=== PATIENT | female | born 1955 | race African-American/Black ===

== ENCOUNTER → 2017-10-01 | Outpatient (CLI) | payer OTHER ==
[~2017-10-01] MED LIST: METOPROLOL
== END | disposition home or self-care (01) ==
LOC: XYW 10:33
PROVIDERS: ATTEND Internal Medicine Cardiovascular Disease
DX: I25.10 Atherosclerotic heart disease of native coronary artery without angina pectoris (principal); I50.9 Heart failure, unspecified
CPT/HCPCS: 93306

== ENCOUNTER → 2018-04-09 | Outpatient (CLI) | payer OTHER ==
[2018-04-09 13:29] LABS: Basophils # (auto) 0 uL; Basophils % (auto) 0.6 % (0.0-2.0); Eosinophils # (auto) 0.1 uL; Eosinophils % (auto) 1.2 % (0.0-7.0); Hemoglobin 13.8 g/dL (12.2-16.2); Lymphocytes # (auto) 1.6 uL; Lymphocytes % (auto) 27.7 % (10.0-50.0); Mean Corpuscular Hemoglobin 27.6 pg (28.0-32.0); Mean Corpuscular Hgb Conc. 32.7 g/dL (32.0-36.0); Mean Corpuscular Volume 84.4 fL (80.0-100.0); Monocytes # (auto) 0.4 uL; Monocytes % (auto) 6.8 % (0.0-12.0); Neutrophils # (auto) 3.7 uL; Neutrophils % (auto) 63.7 % (37.0-80.0); Platelet Count (auto) 268 10^3/uL (140-450); Red Blood Cells 4.98 10^6/uL (4.0-5.20); Red Cell Distribution Width 13.9 % (11.8-14.3); White Blood Cell 5.8 10^3/uL (4.4-10.8)
[2018-04-09 14:29] LABS: Urine Bacteria NONE SEEN /hpf (None Seen); Urine Blood Negative /uL (Negative); Urine Mucus FEW (None Seen); Urine Specific Gravity 1.024 (1.001-1.035); Urine WBC 1 /hpf (0 - 5)
[2018-04-09 15:17] LABS: BUN/Creatinine Ratio 17.3; Bilirubin, Total 0.3 mg/dL (0.2-1.0); Calcium 9.2 mg/dL (8.5-10.1); Potassium 3.6 mmol/L (3.5-5.1); Total Protein 7.9 g/dL (6.4-8.2)
== END | disposition home or self-care (01) ==
LOC: LAB 12:59
PROVIDERS: ATTEND Internal Medicine
DX: I10 Essential (primary) hypertension (principal); I25.10 Atherosclerotic heart disease of native coronary artery without angina pectoris; K21.9 Gastro-esophageal reflux disease without esophagitis
CPT/HCPCS: 36415; 80053; 81001; 82043; 84439; 84443; 85025; 85652

== ENCOUNTER → 2018-07-09 | Outpatient (CLI) | payer OTHER | END | disposition home or self-care (01) | LOC: LAB 10:29 | DX: E03.9 Hypothyroidism, unspecified (principal); C73 Malignant neoplasm of thyroid gland; I11.0 Hypertensive heart disease with heart failure; I50.9 Heart failure, unspecified; K21.9 Gastro-esophageal reflux disease without esophagitis | CPT/HCPCS: 36415; 84439; 84443; 86800 ==

== ENCOUNTER 2018-11-12 18:14 | Emergency (ER) | payer OTHER ==
[~2018-11-12] VITALS: Ht 165.1 cm; Wt 81.6 kg
[2018-11-12] MEDS ORDERED: cloNIDine HCL 0.1 MG TAB ONE (18:32)
[2018-11-12] MEDS ORDERED: cloNIDine HCL 0.1 MG TAB PO ONE (18:45)
[2018-11-12 22:23] LABS: Basophils # (auto) 0 uL; Eosinophils # (auto) 0.1 uL; Eosinophils % (auto) 0.8 % (0.0-7.0); Hemoglobin 13.4 g/dL (12.2-16.2); Monocytes # (auto) 0.6 uL; Platelet Count (auto) 271 10^3/uL (140-450)
[2018-11-12 22:27] LABS: Basophils % (auto) 0.6 % (0.0-2.0); Hematocrit 41.5 % (36.0-46.0); Lymphocytes # (auto) 2.5 uL; Lymphocytes % (auto) 31.4 % (10.0-50.0); Mean Corpuscular Hemoglobin 27.2 pg (28.0-32.0); Mean Corpuscular Hgb Conc. 32.3 g/dL (32.0-36.0); Mean Corpuscular Volume 84.3 fL (80.0-100.0); Monocytes % (auto) 7.5 % (0.0-12.0); Neutrophils # (auto) 4.8 uL; Neutrophils % (auto) 59.7 % (37.0-80.0); Red Blood Cells 4.92 10^6/uL (4.0-5.20); Red Cell Distribution Width 13.8 % (11.8-14.3); White Blood Cell 8.1 10^3/uL (4.4-10.8)
[2018-11-12 22:37] LABS: Magnesium 2.6 mg/dL (1.6-2.6)
[2018-11-12 22:40] LABS: INR 0.98 (0.9-1.15); Partial Thromboplastin Time 29.7 sec (23.78-33.04); Prothrombin Time 10.5 sec (9.27-12.13)
[2018-11-12 22:42] LABS: BUN/Creatinine Ratio 29.5; Bilirubin, Total 0.2 mg/dL (0.2-1.0); Total Protein 7.7 g/dL (6.4-8.2)
[2018-11-13 08:23] VITALS: BP 178/74
[2018-11-13] MEDS ORDERED: cloNIDine HCL 0.1 MG TAB PO ONE (08:45)
== END 2018-11-13 08:49 | disposition home or self-care (01) ==
LOC: ER 18:16
DX: R07.89 Other chest pain (principal); I11.0 Hypertensive heart disease with heart failure; I50.9 Heart failure, unspecified; K21.9 Gastro-esophageal reflux disease without esophagitis; Z98.61 Coronary angioplasty status
CPT/HCPCS: 36415; 71046; 80053; 83735; 84484; 85025; 85610; 85730; 93005

== ENCOUNTER → 2018-12-29 | Outpatient (CLI) | payer OTHER | END | disposition home or self-care (01) | LOC: US 09:49 | PROVIDERS: ATTEND Internal Medicine | DX: E04.1 Nontoxic single thyroid nodule (principal); I10 Essential (primary) hypertension; I50.9 Heart failure, unspecified; Z95.5 Presence of coronary angioplasty implant and graft; Z98.890 Other specified postprocedural states | CPT/HCPCS: 10005; 10022; 76536; 76942; 88172 ==

== ENCOUNTER → 2019-01-18 | Outpatient (CLI) | payer OTHER ==
[2019-01-18 12:41] LABS: Cholesterol 172 mg/dL (< 200); Triglycerides 62 mg/dL (< 150)
[2019-01-18 12:44] LABS: HDL Cholesterol 59 mg/dL (40-59); LDL Cholesterol 100 mg/dL (< 100)
[2019-01-18 12:53] LABS: Free T3 3.67 pg/mL (2.3-4.2); Free T4 (Free Thyroxine) 1.19 ng/dL (0.89-1.76)
== END | disposition home or self-care (01) ==
LOC: LAB 11:06
PROVIDERS: ATTEND Internal Medicine
DX: E78.5 Hyperlipidemia, unspecified (principal); E03.9 Hypothyroidism, unspecified
CPT/HCPCS: 36415; 80061; 84439; 84443; 84481

== ENCOUNTER → 2019-02-11 | Outpatient (CLI) | payer OTHER | END | disposition home or self-care (01) | LOC: XYW 09:55 | PROVIDERS: ATTEND Internal Medicine | DX: I25.10 Atherosclerotic heart disease of native coronary artery without angina pectoris (principal); I11.0 Hypertensive heart disease with heart failure; I50.9 Heart failure, unspecified | CPT/HCPCS: 93306 ==

== ENCOUNTER → 2019-02-11 | Outpatient (CLI) | payer OTHER ==
[2019-02-11 13:16] LABS: Cholesterol 238 mg/dL (< 200); HDL Cholesterol 60 mg/dL (40-59); LDL Cholesterol 166 mg/dL (< 100); Triglycerides 63 mg/dL (< 150)
== END | disposition home or self-care (01) ==
LOC: LAB 11:02
PROVIDERS: ATTEND Internal Medicine
DX: E78.5 Hyperlipidemia, unspecified (principal)
CPT/HCPCS: 36415; 80061

== ENCOUNTER → 2019-02-25 | Outpatient (CLI) | payer OTHER ==
[~2019-02-25] VITALS: Ht 165.1 cm; Wt 96.2 kg
[~2019-02-25] MED LIST changes: +ADENOSINE 81 MG in GIVE UN-DILUTED 0 ML IV STA
== END | disposition home or self-care (01) ==
LOC: XY 07:53
PROVIDERS: ATTEND Internal Medicine
DX: I25.10 Atherosclerotic heart disease of native coronary artery without angina pectoris (principal)
CPT/HCPCS: 78452; 93017; A9500; J0153

== ENCOUNTER 2019-09-30 16:12 | Emergency (ER) | payer OTHER ==
[~2019-09-30] VITALS: Ht 165.1 cm; Wt 81.6 kg
[~2019-09-30 16:12] MED LIST changes: -ADENOSINE 81 MG in GIVE UN-DILUTED 0 ML IV STA
[2019-09-30 17:08] LABS: Basophils # (auto) 0 uL; Basophils % (auto) 0.4 % (0.0-2.0); Eosinophils # (auto) 0 uL; Eosinophils % (auto) 0.7 % (0.0-7.0); Hematocrit 41.2 % (36.0-46.0); Hemoglobin 13.5 g/dL (12.2-16.2); Lymphocytes # (auto) 2.3 uL; Lymphocytes % (auto) 35.5 % (10.0-50.0); Mean Corpuscular Hemoglobin 27.4 pg (28.0-32.0); Mean Corpuscular Hgb Conc. 32.8 g/dL (32.0-36.0); Mean Corpuscular Volume 83.5 fL (80.0-100.0); Monocytes # (auto) 0.4 uL; Monocytes % (auto) 6.2 % (0.0-12.0); Neutrophils # (auto) 3.8 uL; Neutrophils % (auto) 57.2 % (37.0-80.0); Nucleated Red Blood Cells % 0.1 %; Platelet Count (auto) 255 10^3/uL (140-450); Red Blood Cells 4.93 10^6/uL (4.0-5.20); Red Cell Distribution Width 14.1 % (11.8-14.3); White Blood Cell 6.6 10^3/uL (4.4-10.8)
[2019-09-30 17:18] LABS: Albumin 4.1 g/dL (3.4-5.0); Anion Gap 7 (5-15); Blood Urea Nitrogen 13 mg/dL (7-18); Calcium 9.4 mg/dL (8.5-10.1); Carbon Dioxide 28 mmol/L (21-32); Chloride 110 mmol/L (98-107); Glucose 124 mg/dL (74-106); Potassium 3.5 mmol/L (3.5-5.1); Sodium 145 mmol/L (136-145)
[2019-09-30 17:24] LABS: Alanine Aminotransferase 24 U/L (13-56); Alkaline Phosphatase 110 U/L (45-117); Aspartate Aminotransferase 18 U/L (15-37); BUN/Creatinine Ratio 15.3; Bilirubin, Total 0.4 mg/dL (0.2-1.0); GFR African American 86 mL/min; GFR Non-African American 71 mL/min; Total Protein 7.6 g/dL (6.4-8.2)
[2019-09-30 18:10] LABS: INR 1.05 (0.9-1.15); Partial Thromboplastin Time 28.2 sec (23.64-32.05)
[2019-10-01 00:24] VITALS: BP 156/69
== END 2019-10-01 00:24 | disposition home or self-care (01) ==
LOC: ER 16:12
DX: R07.89 Other chest pain (principal); I11.0 Hypertensive heart disease with heart failure; I50.9 Heart failure, unspecified; K21.9 Gastro-esophageal reflux disease without esophagitis; Z98.61 Coronary angioplasty status
CPT/HCPCS: 36415; 71046; 80053; 83735; 83880; 84484; 85025; 85379; 85610; 85730; 93005

== ENCOUNTER 2020-02-11 02:07 | Emergency (ER) | payer OTHER ==
[~2020-02-11] VITALS: Ht 160 cm; Wt 83.9 kg
[2020-02-11 04:12] LABS: Basophils # (auto) 0 10 ^3/uL (0-0.2); Basophils % (auto) 0.5 % (0.0-2.0); Eosinophils # (auto) 0 10 ^3/uL (0-0.8); Eosinophils % (auto) 0.8 % (0.0-7.0); Hematocrit 38.7 % (36.0-46.0); Hemoglobin 12.5 g/dL (12.2-16.2); Lymphocytes # (auto) 1.6 10 ^3/uL (0.4-5.4); Lymphocytes % (auto) 25.6 % (10.0-50.0); Mean Corpuscular Hemoglobin 27.1 pg (28.0-32.0); Mean Corpuscular Hgb Conc. 32.4 g/dL (32.0-36.0); Mean Corpuscular Volume 83.8 fL (80.0-100.0); Monocytes # (auto) 0.5 10 ^3/uL (0-1.3); Neutrophils % (auto) 65.1 % (37.0-80.0); Nucleated Red Blood Cells % 0.1 %; Platelet Count (auto) 215 10^3/uL (140-450); Red Blood Cells 4.62 10^6/uL (4.0-5.20); White Blood Cell 6.1 10^3/uL (4.4-10.8)
[2020-02-11 04:35] LABS: Potassium 3.3 mmol/L (3.5-5.1)
[2020-02-11 04:48] LABS: Albumin 3.8 g/dL (3.4-5.0); BUN/Creatinine Ratio 20.9; Bilirubin, Total 0.4 mg/dL (0.2-1.0); Calcium 9.1 mg/dL (8.5-10.1); Magnesium 2.3 mg/dL (1.6-2.6); Total Protein 7.2 g/dL (6.4-8.2)
[2020-02-11 04:56] LABS: INR 1.05 (0.9-1.15); Partial Thromboplastin Time 28.5 sec (23.64-32.05)
[2020-02-11] MEDS ORDERED: ASPirin 81 mg TAB PO ONE (07:00)
[2020-02-11] MEDS ORDERED: LORazepam 0.5 MG TAB PO ONE (07:00)
[2020-02-11] MEDS ORDERED: POTASSIUM EFFERVESENT TAB 25 MEQ PO ONE (07:00)
[2020-02-11] MEDS ORDERED: cloNIDine HCL 0.1 MG TAB PO ONE (07:30)
[2020-02-11] MEDS ORDERED: NITROGLYCERIN 0.4 MG SL TAB SL ONE (07:45)
[2020-02-11 09:21] VITALS: BP 134/73
== END 2020-02-11 09:42 | disposition home or self-care (01) ==
LOC: EDBD 02:07 → ER 02:11
DX: M79.10 Myalgia, unspecified site (principal); R00.2 Palpitations; F41.9 Anxiety disorder, unspecified; I11.0 Hypertensive heart disease with heart failure; I50.9 Heart failure, unspecified; I25.10 Atherosclerotic heart disease of native coronary artery without angina pectoris; K21.9 Gastro-esophageal reflux disease without esophagitis; Z79.899 Other long term (current) drug therapy
CPT/HCPCS: 36415; 71045; 80053; 83735; 83880; 84484; 85025; 85610; 85730; 93005

== ENCOUNTER → 2020-04-12 | Outpatient (CLI) | payer OTHER ==
[2020-04-12 14:11] LABS: Magnesium 2.3 mg/dL (1.6-2.6); Potassium 3.8 mmol/L (3.5-5.1)
== END | disposition home or self-care (01) ==
LOC: LAB 13:22
PROVIDERS: ATTEND Internal Medicine
DX: R76.11 Nonspecific reaction to tuberculin skin test without active tuberculosis (principal); R05 Cough; K21.9 Gastro-esophageal reflux disease without esophagitis; Z79.899 Other long term (current) drug therapy
CPT/HCPCS: 36415; 80061; 83735; 84132

== ENCOUNTER → 2020-04-25 | Outpatient (CLI) | payer OTHER ==
[2020-04-25 15:30] LABS: Basophils # (auto) 0.1 10 ^3/uL (0-0.2); Eosinophils # (auto) 0 10 ^3/uL (0-0.8); Lymphocytes # (auto) 2.5 10 ^3/uL (0.4-5.4); Neutrophils # (auto) 4.8 10 ^3/uL (1.6-8.6); Nucleated Red Blood Cells % 0.1 %
[2020-04-25 15:31] LABS: Basophils % (auto) 0.8 % (0.0-2.0); Eosinophils % (auto) 0.6 % (0.0-7.0); Hematocrit 40.9 % (36.0-46.0); Hemoglobin 13.1 g/dL (12.2-16.2); Lymphocytes % (auto) 31.5 % (10.0-50.0); Mean Corpuscular Hemoglobin 26.9 pg (28.0-32.0); Mean Corpuscular Hgb Conc. 31.9 g/dL (32.0-36.0); Mean Corpuscular Volume 84.2 fL (80.0-100.0); Monocytes # (auto) 0.6 10 ^3/uL (0-1.3); Neutrophils % (auto) 60.1 % (37.0-80.0); Platelet Count (auto) 256 10^3/uL (140-450); Red Blood Cells 4.86 10^6/uL (4.0-5.20); Red Cell Distribution Width 13.7 % (11.8-14.3)
[2020-04-25 15:50] LABS: BUN/Creatinine Ratio 14.5
[2020-04-25 15:55] LABS: Bilirubin, Total 0.6 mg/dL (0.2-1.0); Total Protein 7.7 g/dL (6.4-8.2)
== END | disposition home or self-care (01) ==
LOC: LAB 15:14
PROVIDERS: ATTEND Internal Medicine
DX: I25.10 Atherosclerotic heart disease of native coronary artery without angina pectoris (principal); R07.89 Other chest pain; R06.01 Orthopnea
CPT/HCPCS: 36415; 80053; 83880; 84484; 85025; 85379; 85652

== ENCOUNTER → 2020-05-17 | Outpatient (CLI) | payer OTHER | END | disposition home or self-care (01) | LOC: LAB 13:40 | PROVIDERS: ATTEND Internal Medicine | DX: R60.0 Localized edema (principal); R89.9 Unspecified abnormal finding in specimens from other organs, systems and tissues | CPT/HCPCS: 36415; 82565; 84520 ==

== ENCOUNTER → 2020-06-23 | Outpatient (CLI) | payer OTHER ==
[~2020-06-23] MED LIST changes: +ALBUTEROL SULF 2.5 MG/0.5ML(0.5%) NEB SOLN ONE
== END | disposition home or self-care (01) ==
LOC: RT 08:29
PROVIDERS: ATTEND Internal Medicine Pulmonary Disease
DX: R06.02 Shortness of breath (principal)
CPT/HCPCS: 94060; 94727; 94729

== ENCOUNTER → 2020-08-17 | Outpatient (CLI) | payer OTHER ==
[~2020-08-17] MED LIST changes: -ALBUTEROL SULF 2.5 MG/0.5ML(0.5%) NEB SOLN ONE
== END | disposition home or self-care (01) ==
LOC: Rad HDHVI 12:43
PROVIDERS: ATTEND Internal Medicine Cardiovascular Disease
DX: I08.1 Rheumatic disorders of both mitral and tricuspid valves (principal); J45.991 Cough variant asthma; E78.5 Hyperlipidemia, unspecified; Z95.5 Presence of coronary angioplasty implant and graft
CPT/HCPCS: 93306

== ENCOUNTER → 2020-08-21 | Outpatient (CLI) | payer OTHER ==
[~2020-08-21] VITALS: Ht 167.6 cm; Wt 89.8 kg
[~2020-08-21] MED LIST changes: +ADENOSINE 75 MG in GIVE UN-DILUTED 0 ML IV ONE; +ADENOSINE 90 MG/30 ML INJ IV ONE
== END | disposition home or self-care (01) ==
LOC: Rad HDHVI 14:01
PROVIDERS: ATTEND Internal Medicine Cardiovascular Disease
DX: R07.89 Other chest pain (principal); I10 Essential (primary) hypertension; E78.5 Hyperlipidemia, unspecified; I25.10 Atherosclerotic heart disease of native coronary artery without angina pectoris
CPT/HCPCS: 78452; 93005; 96374; 96375; A9500; J0153

== ENCOUNTER → 2021-01-18 | Outpatient (CLI) | payer OTHER ==
[~2021-01-18] MED LIST changes: -ADENOSINE 75 MG in GIVE UN-DILUTED 0 ML IV ONE; -ADENOSINE 90 MG/30 ML INJ IV ONE
[2021-01-18 15:09] LABS: Basophils # (auto) 0 10 ^3/uL (0-0.2); Basophils % (auto) 0.5 % (0.0-2.0); Eosinophils # (auto) 0.1 10 ^3/uL (0-0.8); Eosinophils % (auto) 0.9 % (0.0-7.0); Hematocrit 39.7 % (36.0-46.0); Hemoglobin 13.1 g/dL (12.2-16.2); Lymphocytes # (auto) 2.8 10 ^3/uL (0.4-5.4); Lymphocytes % (auto) 37.9 % (10.0-50.0); Mean Corpuscular Hemoglobin 27.9 pg (28.0-32.0); Mean Corpuscular Hgb Conc. 33.1 g/dL (32.0-36.0); Mean Corpuscular Volume 84.3 fL (80.0-100.0); Monocytes # (auto) 0.5 10 ^3/uL (0-1.3); Monocytes % (auto) 6.9 % (0.0-12.0); Neutrophils # (auto) 3.9 10 ^3/uL (1.6-8.6); Neutrophils % (auto) 53.8 % (37.0-80.0); Nucleated Red Blood Cells % 0.1 %; Platelet Count (auto) 261 10^3/uL (140-450); Red Blood Cells 4.71 10^6/uL (4.0-5.20); Red Cell Distribution Width 13.5 % (11.8-14.3); White Blood Cell 7.3 10^3/uL (4.4-10.8)
[2021-01-18 15:38] LABS: Albumin 4.1 g/dL (3.4-5.0); Calcium 9.5 mg/dL (8.5-10.1); Magnesium 2.5 mg/dL (1.6-2.6); Potassium 3.7 mmol/L (3.5-5.1)
[2021-01-18 15:43] LABS: Bilirubin, Total 0.5 mg/dL (0.2-1.0); Total Protein 7.9 g/dL (6.4-8.2)
== END | disposition home or self-care (01) ==
LOC: LAB 14:48
PROVIDERS: ATTEND Internal Medicine
DX: I10 Essential (primary) hypertension (principal); E78.5 Hyperlipidemia, unspecified
CPT/HCPCS: 36415; 80053; 83735; 84439; 84443; 85025

== ENCOUNTER → 2021-06-21 | Outpatient (CLI) | payer OTHER | END | disposition home or self-care (01) | LOC: XY 08:19 | PROVIDERS: ATTEND Internal Medicine | DX: E04.1 Nontoxic single thyroid nodule (principal); E03.9 Hypothyroidism, unspecified; E05.90 Thyrotoxicosis, unspecified without thyrotoxic crisis or storm; E04.8 Other specified nontoxic goiter | CPT/HCPCS: 78014; A9516 ==

== ENCOUNTER → 2021-08-03 | Outpatient (CLI) | payer OTHER ==
[2021-08-03 09:29] LABS: Basophils # (auto) 0 10 ^3/uL (0-0.2); Basophils % (auto) 0.4 % (0.0-2.0); Eosinophils # (auto) 0.1 10 ^3/uL (0-0.8); Eosinophils % (auto) 0.9 % (0.0-7.0); Hematocrit 42.4 % (36.0-46.0); Hemoglobin 13.6 g/dL (12.2-16.2); Lymphocytes # (auto) 1.6 10 ^3/uL (0.4-5.4); Lymphocytes % (auto) 29.5 % (10.0-50.0); Mean Corpuscular Volume 84.4 fL (80.0-100.0); Monocytes # (auto) 0.4 10 ^3/uL (0-1.3); Monocytes % (auto) 7.4 % (0.0-12.0); Neutrophils # (auto) 3.4 10 ^3/uL (1.6-8.6); Neutrophils % (auto) 61.8 % (37.0-80.0); Red Blood Cells 5.02 10^6/uL (4.0-5.20); Red Cell Distribution Width 14.3 % (11.8-14.3); White Blood Cell 5.6 10^3/uL (4.4-10.8)
[2021-08-03 09:37] LABS: Urine Bacteria NONE SEEN /hpf (None Seen); Urine Blood Negative /uL (Negative); Urine Mucus FEW (None Seen); Urine Specific Gravity 1.023 (1.001-1.035); Urine WBC 11 /hpf (0 - 5)
[2021-08-03 09:58] LABS: Calcium 9.5 mg/dL (8.5-10.1); Potassium 3.8 mmol/L (3.5-5.1)
[2021-08-03 10:03] LABS: Bilirubin, Total 0.6 mg/dL (0.2-1.0); Total Protein 7.7 g/dL (6.4-8.2)
== END | disposition home or self-care (01) ==
LOC: LAB 09:12
PROVIDERS: ATTEND Internal Medicine
DX: E04.2 Nontoxic multinodular goiter (principal)
CPT/HCPCS: 36415; 80053; 80061; 81001; 84439; 84443; 85025; 85652

== ENCOUNTER 2021-09-30 12:57 | Emergency (ER) | payer OTHER ==
[~2021-09-30] VITALS: Ht 167.6 cm; Wt 85.7 kg
[2021-09-30 12:59] VITALS: BP 155/76
== END 2021-09-30 20:58 | disposition left against medical advice (07) ==
LOC: ER 12:57
DX: R07.89 Other chest pain (principal); Z53.21 Procedure and treatment not carried out due to patient leaving prior to being seen by health care provider
CPT/HCPCS: 93005

== ENCOUNTER 2021-10-01 17:13 | Inpatient (IN) | payer OTHER ==
[~2021-10-01] VITALS: Ht 167.6 cm; Wt 103.2 kg
[~2021-10-01 17:13] MED LIST changes: -BUDE1AER5 PO; -CLOP75TA70 PO; -ESCI5TAB33 PO; -FURO40TA4 PO; -LOSA-39 PO; -NIFE90TA49 PO; -POTA-264 PO; -SIMV-13 PO
[2021-10-01] MEDS ORDERED: MORPHINE SULFATE INJECTION 2 MG/ML SYRG IV ONE (17:45)
[2021-10-01] MEDS ORDERED: ONDANSETRON HCL 4 MG/2 ML VIAL IV ONE (17:45)
[2021-10-01 18:10] LABS: Basophils # (auto) 0 10 ^3/uL (0-0.2); Basophils % (auto) 0.3 % (0.0-2.0); Eosinophils # (auto) 0 10 ^3/uL (0-0.8); Neutrophils # (auto) 6.5 10 ^3/uL (1.6-8.6); Nucleated Red Blood Cells % 0.1 %
[2021-10-01 18:12] LABS: Eosinophils % (auto) 0.2 % (0.0-7.0); Hematocrit 44.1 % (36.0-46.0); Lymphocytes # (auto) 2.2 10 ^3/uL (0.4-5.4); Mean Corpuscular Hemoglobin 26.5 pg (28.0-32.0); Mean Corpuscular Hgb Conc. 31.7 g/dL (32.0-36.0); Mean Corpuscular Volume 83.8 fL (80.0-100.0); Monocytes # (auto) 0.8 10 ^3/uL (0-1.3); Monocytes % (auto) 8.7 % (0.0-12.0); Neutrophils % (auto) 67.8 % (37.0-80.0); Red Blood Cells 5.26 10^6/uL (4.0-5.20); Red Cell Distribution Width 14.3 % (11.8-14.3); White Blood Cell 9.5 10^3/uL (4.4-10.8)
[2021-10-01 18:28] LABS: Calcium 9.5 mg/dL (8.5-10.1); Magnesium 2.7 mg/dL (1.6-2.6); Potassium 3.5 mmol/L (3.5-5.1)
[2021-10-01 18:33] LABS: BUN/Creatinine Ratio 16.7; Bilirubin, Total 0.5 mg/dL (0.2-1.0); Total Protein 8.1 g/dL (6.4-8.2)
[2021-10-01] MEDS ORDERED: IOHEXOL 350 MG/ML 100ML IJ ONE (19:23)
[2021-10-01] MEDS ORDERED: ACETAMINOPHEN 325 MG TAB PO PRN (21:00)
[2021-10-01] MEDS: ATORVASTATIN 20 MG TAB PO SCH (21:46)
[2021-10-02] MEDS ORDERED: BUDE1AER5 PO (01:14)
[2021-10-02] MEDS ORDERED: LOSA-39 PO (01:14)
[2021-10-02] MEDS ORDERED: SIMV-13 PO (01:14)
[2021-10-02] MEDS ORDERED: CLOP75TA70 PO (01:14)
[2021-10-02] MEDS ORDERED: ESCI5TAB33 PO (01:14)
[2021-10-02] MEDS ORDERED: FURO40TA4 PO (01:14)
[2021-10-02] MEDS ORDERED: NIFE90TA49 PO (01:14)
[2021-10-02] MEDS ORDERED: POTA-264 PO (01:15)
[2021-10-02 05:00] VITALS: BP 120/54
[2021-10-02 05:45] VITALS: BP 127/64
[2021-10-02 08:40] LABS: Basophils # (auto) 0 10 ^3/uL (0-0.2); Basophils % (auto) 0.5 % (0.0-2.0); Eosinophils # (auto) 0.1 10 ^3/uL (0-0.8); Eosinophils % (auto) 0.8 % (0.0-7.0); Hematocrit 42.5 % (36.0-46.0); Hemoglobin 13.8 g/dL (12.2-16.2); Lymphocytes % (auto) 27.9 % (10.0-50.0); Mean Corpuscular Hemoglobin 27.2 pg (28.0-32.0); Mean Corpuscular Hgb Conc. 32.6 g/dL (32.0-36.0); Mean Corpuscular Volume 83.5 fL (80.0-100.0); Monocytes # (auto) 0.7 10 ^3/uL (0-1.3); Monocytes % (auto) 9.3 % (0.0-12.0); Neutrophils # (auto) 4.4 10 ^3/uL (1.6-8.6); Neutrophils % (auto) 61.5 % (37.0-80.0); Nucleated Red Blood Cells % 0.1 %; Red Blood Cells 5.08 10^6/uL (4.0-5.20); Red Cell Distribution Width 14.1 % (11.8-14.3); White Blood Cell 7.2 10^3/uL (4.4-10.8)
[2021-10-02 08:56] LABS: Albumin 3.9 g/dL (3.4-5.0); Calcium 9.4 mg/dL (8.5-10.1); Potassium 3.7 mmol/L (3.5-5.1)
[2021-10-02 09:00] VITALS: BP 118/64
[2021-10-02 09:03] LABS: BUN/Creatinine Ratio 21.4; Bilirubin, Total 0.6 mg/dL (0.2-1.0); Total Protein 7.8 g/dL (6.4-8.2)
[2021-10-02] MEDS: ASPirin 81 mg TAB PO SCH (09:39)
[2021-10-02] MEDS: PANTOPRAZOLE 40 MG TAB PO SCH (09:39)
[2021-10-02] MEDS: NIFEdipine ER 30 MG TAB PO SCH (09:40)
[2021-10-02] MEDS: FUROSEMIDE 40 MG TAB PO SCH (09:41)
[2021-10-02] MEDS: CLOPIDOGREL BISULFATE 75 MG TAB PO SCH (09:41)
[2021-10-02] MEDS: LOSARTAN POTASSIUM 50 MG TAB PO SCH (09:41)
[2021-10-02] MEDS ORDERED: ENOXAPARIN SOD 40 MG/0.4 ML SYRINGE SC SCH (10:00)
[2021-10-02] MEDS ORDERED: HYDROcodone-ACET 5/325MG TAB PO ONE (12:15)
[2021-10-02] MEDS ORDERED: ENOXAPARIN SOD 60 MG/0.6 ML SYRINGE SC ONE (12:30)
[2021-10-02 13:00] VITALS: BP_SYST 126; BP_SYST 129; BP_DIAS 57; BP_DIAS 70
[2021-10-02] MEDS ORDERED: KETOROLAC TROMETH 30 MG/ML 1ML VIAL IV ONE (16:30)
[2021-10-02 16:51] VITALS: BP 126/57
[2021-10-02] MEDS: NITROGLYCERIN 0.4 MG SL TAB SL PRN ×2 (21:04→21:26)
[2021-10-02] MEDS: ATORVASTATIN 20 MG TAB PO SCH (21:06)
[2021-10-02] MEDS: ENOXAPARIN SOD 100 MG/1 ML SYRINGE SC SCH (21:07)
[2021-10-02] MEDS: TEMAZEPAM 15 MG CAP PO PRN (22:47)
[2021-10-02 23:17] VITALS: BP 122/66
[2021-10-03 05:12] VITALS: BP 130/80
[2021-10-03 09:00] VITALS: BP 120/67
[2021-10-03] MEDS: CLOPIDOGREL BISULFATE 75 MG TAB PO SCH (09:50)
[2021-10-03] MEDS: LOSARTAN POTASSIUM 50 MG TAB PO SCH (09:50)
[2021-10-03] MEDS: PANTOPRAZOLE 40 MG TAB PO SCH (09:50)
[2021-10-03] MEDS: FUROSEMIDE 40 MG TAB PO SCH (09:50)
[2021-10-03] MEDS: ENOXAPARIN SOD 100 MG/1 ML SYRINGE SC SCH (09:51)
[2021-10-03] MEDS: ASPirin 81 mg TAB PO SCH (09:55)
[2021-10-03] MEDS: NIFEdipine ER 30 MG TAB PO SCH (10:00)
[2021-10-03] MEDS: MORPHINE SULFATE INJECTION 2 MG/ML SYRG IV PRN (10:19)
[2021-10-03 13:00] VITALS: BP 145/78
[2021-10-03] MEDS ORDERED: LIDOCAINE 2%HCL (LOCAL ANESTH.) INJ 20ML MDV ONE ×2 (13:38→15:16)
[2021-10-03] MEDS ORDERED: IOHEXOL 350 MG/ML 100ML IJ ONE (13:38)
[2021-10-03] MEDS ORDERED: fentaNYL CITRATE 100 MCG/2 ML VL ONE (14:26)
[2021-10-03] MEDS ORDERED: ANGIOMAX 250 MG VIAL IV ONE (14:26)
[2021-10-03] MEDS ORDERED: MIDAZOLAM HCL 2MG/2ML 2ml VIAL (1mg/ml) ONE (14:27)
[2021-10-03] MEDS ORDERED: SODIUM CHL 0.9% 50 ML ONE (14:27)
[2021-10-03] MEDS ORDERED: ASPirin 325 MG TAB ONE (15:31)
[2021-10-03] MEDS ORDERED: CLOPIDOGREL 300 MG TAB ONE (15:31)
[2021-10-03] MEDS: ONDANSETRON HCL 4 MG/2 ML VIAL IV PRN ×2 (16:51→21:07)
[2021-10-03 17:00] VITALS: BP 113/67
[2021-10-03 19:30] VITALS: BP 113/59
[2021-10-03] MEDS: ATORVASTATIN 20 MG TAB PO SCH (21:56)
[2021-10-03] MEDS: HYDROcodone-ACET 5/325MG TAB PO PRN (21:57)
[2021-10-03 22:00] VITALS: BP 113/59
[2021-10-04] MEDS: TEMAZEPAM 15 MG CAP PO PRN (01:26)
[2021-10-04] MEDS: ONDANSETRON HCL 4 MG/2 ML VIAL IV PRN (01:45)
[2021-10-04 05:00] VITALS: BP 103/64
[2021-10-04 05:39] LABS: Hematocrit 35.7 % (36.0-46.0); Hemoglobin 11.8 g/dL (12.2-16.2)
[2021-10-04] MEDS: HYDROcodone-ACET 5/325MG TAB PO PRN ×2 (06:48→21:28)
[2021-10-04 07:06] LABS: Albumin 3.5 g/dL (3.4-5.0); Potassium 4.7 mmol/L (3.5-5.1)
[2021-10-04 07:11] LABS: BUN/Creatinine Ratio 24.5; Bilirubin, Total 0.3 mg/dL (0.2-1.0); Total Protein 6.8 g/dL (6.4-8.2)
[2021-10-04 08:47] LABS: INR 1.05 (0.9-1.15); Partial Thromboplastin Time 28.2 sec (23.6-33.0)
[2021-10-04 09:00] VITALS: BP 94/61
[2021-10-04] MEDS: LOSARTAN POTASSIUM 50 MG TAB PO SCH (09:01)
[2021-10-04] MEDS: FUROSEMIDE 40 MG TAB PO SCH (09:02)
[2021-10-04] MEDS: NIFEdipine ER 30 MG TAB PO SCH (09:02)
[2021-10-04] MEDS: PANTOPRAZOLE 40 MG TAB PO SCH (10:00)
[2021-10-04] MEDS ORDERED: ASPirin-EC 81 mg tab PO SCH (10:00)
[2021-10-04] MEDS ORDERED: SODIUM CHLORIDE 0.9% 1,000 ML IV ONE (10:30)
[2021-10-04 11:53] LABS: Basophils # (auto) 0 10 ^3/uL (0-0.2); Basophils % (auto) 0.1 % (0.0-2.0); Eosinophils # (auto) 0 10 ^3/uL (0-0.8); Hematocrit 35.7 % (36.0-46.0); Hemoglobin 11.3 g/dL (12.2-16.2); Lymphocytes # (auto) 1.2 10 ^3/uL (0.4-5.4); Lymphocytes % (auto) 9.4 % (10.0-50.0); Mean Corpuscular Hemoglobin 26.7 pg (28.0-32.0); Mean Corpuscular Hgb Conc. 31.8 g/dL (32.0-36.0); Monocytes # (auto) 0.8 10 ^3/uL (0-1.3); Monocytes % (auto) 5.7 % (0.0-12.0); Neutrophils # (auto) 11.2 10 ^3/uL (1.6-8.6); Neutrophils % (auto) 84.8 % (37.0-80.0); Nucleated Red Blood Cells % 0.1 %; Red Blood Cells 4.25 10^6/uL (4.0-5.20); White Blood Cell 13.2 10^3/uL (4.4-10.8)
[2021-10-04 12:14] LABS: BUN/Creatinine Ratio 19.3; Potassium 4.6 mmol/L (3.5-5.1)
[2021-10-04 13:00] VITALS: BP 118/70
[2021-10-04 13:36] LABS: Basophils # (auto) 0 10 ^3/uL (0-0.2); Eosinophils # (auto) 0 10 ^3/uL (0-0.8); Lymphocytes # (auto) 1.1 10 ^3/uL (0.4-5.4); Monocytes # (auto) 0.9 10 ^3/uL (0-1.3)
[2021-10-04 13:38] LABS: Basophils % (auto) 0.1 % (0.0-2.0); Hematocrit 34.3 % (36.0-46.0); Hemoglobin 10.8 g/dL (12.2-16.2); Lymphocytes % (auto) 8.1 % (10.0-50.0); Mean Corpuscular Hemoglobin 26.6 pg (28.0-32.0); Mean Corpuscular Hgb Conc. 31.5 g/dL (32.0-36.0); Mean Corpuscular Volume 84.4 fL (80.0-100.0); Monocytes % (auto) 6.9 % (0.0-12.0); Neutrophils # (auto) 11.5 10 ^3/uL (1.6-8.6); Neutrophils % (auto) 84.9 % (37.0-80.0); Red Blood Cells 4.06 10^6/uL (4.0-5.20); Red Cell Distribution Width 14.2 % (11.8-14.3); White Blood Cell 13.6 10^3/uL (4.4-10.8)
[2021-10-04 13:53] LABS: BUN/Creatinine Ratio 20.2; Potassium 4.5 mmol/L (3.5-5.1)
[2021-10-04 17:00] VITALS: BP 124/53
[2021-10-04] MEDS: ATORVASTATIN 20 MG TAB PO SCH (21:27)
[2021-10-04 22:00] VITALS: BP 129/56
[2021-10-05 02:52] LABS: Eosinophils # (auto) 0 10 ^3/uL (0-0.8); Hemoglobin 8.7 g/dL (12.2-16.2); Mean Corpuscular Hemoglobin 26.9 pg (28.0-32.0)
[2021-10-05 02:54] LABS: Basophils # (auto) 0 10 ^3/uL (0-0.2); Basophils % (auto) 0.2 % (0.0-2.0); Hematocrit 27.1 % (36.0-46.0); Lymphocytes # (auto) 2.5 10 ^3/uL (0.4-5.4); Lymphocytes % (auto) 19.9 % (10.0-50.0); Mean Corpuscular Hgb Conc. 32.2 g/dL (32.0-36.0); Mean Corpuscular Volume 83.6 fL (80.0-100.0); Monocytes # (auto) 1.6 10 ^3/uL (0-1.3); Monocytes % (auto) 12.6 % (0.0-12.0); Neutrophils # (auto) 8.6 10 ^3/uL (1.6-8.6); Neutrophils % (auto) 67.3 % (37.0-80.0); Nucleated Red Blood Cells % 0.1 %; Red Blood Cells 3.24 10^6/uL (4.0-5.20); Red Cell Distribution Width 14.1 % (11.8-14.3); White Blood Cell 12.8 10^3/uL (4.4-10.8)
[2021-10-05 05:00] VITALS: BP 112/62
[2021-10-05 09:00] VITALS: BP 128/56
[2021-10-05 09:14] LABS: Basophils # (auto) 0 10 ^3/uL (0-0.2); Basophils % (auto) 0.1 % (0.0-2.0); Eosinophils # (auto) 0 10 ^3/uL (0-0.8); Eosinophils % (auto) 0.1 % (0.0-7.0); Hemoglobin 8.8 g/dL (12.2-16.2); Lymphocytes # (auto) 2.5 10 ^3/uL (0.4-5.4); Lymphocytes % (auto) 22.3 % (10.0-50.0); Mean Corpuscular Hemoglobin 27.4 pg (28.0-32.0); Mean Corpuscular Hgb Conc. 32.8 g/dL (32.0-36.0); Mean Corpuscular Volume 83.7 fL (80.0-100.0); Monocytes # (auto) 1.2 10 ^3/uL (0-1.3); Monocytes % (auto) 10.3 % (0.0-12.0); Neutrophils # (auto) 7.6 10 ^3/uL (1.6-8.6); Neutrophils % (auto) 67.2 % (37.0-80.0); Red Blood Cells 3.23 10^6/uL (4.0-5.20); White Blood Cell 11.3 10^3/uL (4.4-10.8)
[2021-10-05 09:25] LABS: Calcium 8.7 mg/dL (8.5-10.1); Magnesium 2.6 mg/dL (1.6-2.6); Potassium 4.1 mmol/L (3.5-5.1)
[2021-10-05 09:26] LABS: BUN/Creatinine Ratio 32.8
[2021-10-05] MEDS: FUROSEMIDE 40 MG TAB PO SCH (10:00)
[2021-10-05] MEDS: NIFEdipine ER 30 MG TAB PO SCH (10:00)
[2021-10-05] MEDS: PANTOPRAZOLE 40 MG TAB PO SCH (10:00)
[2021-10-05] MEDS: LOSARTAN POTASSIUM 50 MG TAB PO SCH (10:00)
[2021-10-05] MEDS: HYDROcodone-ACET 5/325MG TAB PO PRN (12:57)
[2021-10-05 13:00] VITALS: BP 116/60
[2021-10-05 14:13] LABS: Basophils # (auto) 0 10 ^3/uL (0-0.2); Basophils % (auto) 0.2 % (0.0-2.0); Eosinophils # (auto) 0 10 ^3/uL (0-0.8); Hematocrit 25.1 % (36.0-46.0); Hemoglobin 8.2 g/dL (12.2-16.2); Lymphocytes # (auto) 1.9 10 ^3/uL (0.4-5.4); Lymphocytes % (auto) 20.7 % (10.0-50.0); Mean Corpuscular Hemoglobin 27.2 pg (28.0-32.0); Mean Corpuscular Hgb Conc. 32.5 g/dL (32.0-36.0); Mean Corpuscular Volume 83.7 fL (80.0-100.0); Monocytes # (auto) 0.9 10 ^3/uL (0-1.3); Monocytes % (auto) 9.5 % (0.0-12.0); Neutrophils # (auto) 6.4 10 ^3/uL (1.6-8.6); Neutrophils % (auto) 69.6 % (37.0-80.0); Red Blood Cells 3.01 10^6/uL (4.0-5.20); Red Cell Distribution Width 13.8 % (11.8-14.3); White Blood Cell 9.2 10^3/uL (4.4-10.8)
[2021-10-05] MEDS: CLOPIDOGREL BISULFATE 75 MG TAB PO SCH (16:54)
[2021-10-05 17:00] VITALS: BP 118/59
[2021-10-05] MEDS ORDERED: PATIENTS OWN MEDICATION (EPOGEN 10,000 UNITS) SUBCUT ONE (17:00)
[2021-10-05] MEDS ORDERED: EPOETIN ALFA-EPBX 10,000 UNIT/1ML VIAL SC ONE (17:00)
[2021-10-05 18:25] LABS: Basophils # (auto) 0 10 ^3/uL (0-0.2); Basophils % (auto) 0.3 % (0.0-2.0); Eosinophils # (auto) 0 10 ^3/uL (0-0.8); Hemoglobin 8.6 g/dL (12.2-16.2); Lymphocytes # (auto) 2.2 10 ^3/uL (0.4-5.4); Lymphocytes % (auto) 23.9 % (10.0-50.0); Mean Corpuscular Hemoglobin 27.5 pg (28.0-32.0); Mean Corpuscular Hgb Conc. 33.1 g/dL (32.0-36.0); Mean Corpuscular Volume 82.9 fL (80.0-100.0); Monocytes # (auto) 1.1 10 ^3/uL (0-1.3); Monocytes % (auto) 11.9 % (0.0-12.0); Neutrophils # (auto) 5.9 10 ^3/uL (1.6-8.6); Neutrophils % (auto) 63.9 % (37.0-80.0); Red Blood Cells 3.14 10^6/uL (4.0-5.20); Red Cell Distribution Width 13.9 % (11.8-14.3); White Blood Cell 9.3 10^3/uL (4.4-10.8)
[2021-10-05] MEDS: MORPHINE SULFATE INJECTION 2 MG/ML SYRG IV PRN (18:35)
[2021-10-05] MEDS: ONDANSETRON HCL 4 MG/2 ML VIAL IV PRN (18:35)
[2021-10-05] MEDS: NITROGLYCERIN 0.4 MG SL TAB SL PRN (18:43)
[2021-10-05 22:00] VITALS: BP 134/60
[2021-10-05] MEDS: ATORVASTATIN 20 MG TAB PO SCH (22:10)
[2021-10-06 02:20] LABS: Basophils # (auto) 0 10 ^3/uL (0-0.2); Eosinophils # (auto) 0 10 ^3/uL (0-0.8); Lymphocytes % (auto) 26.7 % (10.0-50.0); Mean Corpuscular Volume 82.9 fL (80.0-100.0)
[2021-10-06 02:22] LABS: Basophils % (auto) 0.5 % (0.0-2.0); Eosinophils % (auto) 0.1 % (0.0-7.0); Hematocrit 23.6 % (36.0-46.0); Mean Corpuscular Hgb Conc. 33.8 g/dL (32.0-36.0); Monocytes # (auto) 0.9 10 ^3/uL (0-1.3); Monocytes % (auto) 11.7 % (0.0-12.0); Neutrophils # (auto) 4.6 10 ^3/uL (1.6-8.6); Red Blood Cells 2.85 10^6/uL (4.0-5.20); Red Cell Distribution Width 13.8 % (11.8-14.3); White Blood Cell 7.5 10^3/uL (4.4-10.8)
[2021-10-06 05:00] VITALS: BP 127/61
[2021-10-06 07:08] LABS: Basophils # (auto) 0 10 ^3/uL (0-0.2); Eosinophils # (auto) 0 10 ^3/uL (0-0.8); Eosinophils % (auto) 0.1 % (0.0-7.0); Hemoglobin 7.8 g/dL (12.2-16.2); Mean Corpuscular Hgb Conc. 32.8 g/dL (32.0-36.0); Monocytes # (auto) 0.8 10 ^3/uL (0-1.3); Neutrophils # (auto) 5.2 10 ^3/uL (1.6-8.6)
[2021-10-06 07:10] LABS: Basophils % (auto) 0.5 % (0.0-2.0); Hematocrit 23.9 % (36.0-46.0); Lymphocytes # (auto) 1.5 10 ^3/uL (0.4-5.4); Lymphocytes % (auto) 19.7 % (10.0-50.0); Mean Corpuscular Hemoglobin 27.3 pg (28.0-32.0); Mean Corpuscular Volume 83.4 fL (80.0-100.0); Monocytes % (auto) 10.2 % (0.0-12.0); Neutrophils % (auto) 69.5 % (37.0-80.0); Red Blood Cells 2.86 10^6/uL (4.0-5.20); Red Cell Distribution Width 13.8 % (11.8-14.3); White Blood Cell 7.4 10^3/uL (4.4-10.8)
[2021-10-06 07:17] LABS: Calcium 8.4 mg/dL (8.5-10.1); Magnesium 2.8 mg/dL (1.6-2.6); Phosphorus 2.2 mg/dL (2.5-4.90); Potassium 4.1 mmol/L (3.5-5.1)
[2021-10-06 09:00] VITALS: BP 105/35
[2021-10-06] MEDS: FUROSEMIDE 40 MG TAB PO SCH (10:00)
[2021-10-06] MEDS: PANTOPRAZOLE 40 MG TAB PO SCH (10:03)
[2021-10-06] MEDS: CLOPIDOGREL BISULFATE 75 MG TAB PO SCH (10:03)
[2021-10-06] MEDS: SODIUM FERR GLUC 62.5MG/5ML 125 MG in SODIUM CHL 0.9% 100 ML IV SCH (10:20)
[2021-10-06] MEDS: HYDROcodone-ACET 5/325MG TAB PO PRN (10:37)
[2021-10-06] MEDS ORDERED: POTASSIUM PHOSPHATE 22 MEQ in SODIUM CHL 0.9% 100 ML IV ONE (12:00)
[2021-10-06 12:45] VITALS: BP 98/34
[2021-10-06 14:21] LABS: Basophils # (auto) 0 10 ^3/uL (0-0.2); Eosinophils # (auto) 0 10 ^3/uL (0-0.8); Lymphocytes # (auto) 1.8 10 ^3/uL (0.4-5.4); Mean Corpuscular Hgb Conc. 33.1 g/dL (32.0-36.0); Monocytes # (auto) 0.8 10 ^3/uL (0-1.3)
[2021-10-06 14:23] LABS: Basophils % (auto) 0.1 % (0.0-2.0); Eosinophils % (auto) 0.1 % (0.0-7.0); Hematocrit 23.7 % (36.0-46.0); Hemoglobin 7.8 g/dL (12.2-16.2); Lymphocytes % (auto) 21.9 % (10.0-50.0); Mean Corpuscular Hemoglobin 27.7 pg (28.0-32.0); Mean Corpuscular Volume 83.6 fL (80.0-100.0); Monocytes % (auto) 9.6 % (0.0-12.0); Neutrophils # (auto) 5.8 10 ^3/uL (1.6-8.6); Neutrophils % (auto) 68.3 % (37.0-80.0); Red Blood Cells 2.83 10^6/uL (4.0-5.20); Red Cell Distribution Width 13.6 % (11.8-14.3); White Blood Cell 8.4 10^3/uL (4.4-10.8)
[2021-10-06 16:53] VITALS: BP 118/75
[2021-10-06 19:37] LABS: Basophils # (auto) 0 10 ^3/uL (0-0.2); Eosinophils # (auto) 0 10 ^3/uL (0-0.8); Hemoglobin 7.5 g/dL (12.2-16.2); Mean Corpuscular Hemoglobin 27.7 pg (28.0-32.0); Mean Corpuscular Hgb Conc. 33.4 g/dL (32.0-36.0); Mean Corpuscular Volume 82.9 fL (80.0-100.0); Monocytes # (auto) 0.8 10 ^3/uL (0-1.3); Neutrophils # (auto) 5.5 10 ^3/uL (1.6-8.6); Nucleated Red Blood Cells % 0.1 %; Red Blood Cells 2.71 10^6/uL (4.0-5.20)
[2021-10-06 19:40] LABS: Basophils % (auto) 0.3 % (0.0-2.0); Eosinophils % (auto) 0.1 % (0.0-7.0); Hematocrit 22.5 % (36.0-46.0); Lymphocytes # (auto) 1.6 10 ^3/uL (0.4-5.4); Lymphocytes % (auto) 19.8 % (10.0-50.0); Monocytes % (auto) 10.2 % (0.0-12.0); Neutrophils % (auto) 69.6 % (37.0-80.0); Red Cell Distribution Width 13.6 % (11.8-14.3)
[2021-10-06 22:00] VITALS: BP 120/53
[2021-10-06] MEDS: ATORVASTATIN 20 MG TAB PO SCH (22:03)
[2021-10-06] MEDS: MORPHINE SULFATE INJECTION 2 MG/ML SYRG IV PRN (22:17)
[2021-10-06] MEDS: TEMAZEPAM 15 MG CAP PO PRN (22:18)
[2021-10-07 01:09] LABS: Basophils # (auto) 0 10 ^3/uL (0-0.2); Eosinophils # (auto) 0 10 ^3/uL (0-0.8); Lymphocytes # (auto) 1.9 10 ^3/uL (0.4-5.4); Monocytes # (auto) 0.8 10 ^3/uL (0-1.3); Neutrophils # (auto) 4.5 10 ^3/uL (1.6-8.6)
[2021-10-07 01:12] LABS: Basophils % (auto) 0.5 % (0.0-2.0); Eosinophils % (auto) 0.3 % (0.0-7.0); Hematocrit 21.9 % (36.0-46.0); Hemoglobin 7.4 g/dL (12.2-16.2); Lymphocytes % (auto) 26.4 % (10.0-50.0); Mean Corpuscular Hemoglobin 28.2 pg (28.0-32.0); Mean Corpuscular Hgb Conc. 33.8 g/dL (32.0-36.0); Mean Corpuscular Volume 83.4 fL (80.0-100.0); Monocytes % (auto) 11.2 % (0.0-12.0); Neutrophils % (auto) 61.6 % (37.0-80.0); Red Blood Cells 2.62 10^6/uL (4.0-5.20); Red Cell Distribution Width 13.4 % (11.8-14.3); White Blood Cell 7.2 10^3/uL (4.4-10.8)
[2021-10-07 05:00] VITALS: BP 128/75
[2021-10-07 05:19] LABS: Basophils # (auto) 0 10 ^3/uL (0-0.2); Basophils % (auto) 0.4 % (0.0-2.0); Eosinophils # (auto) 0 10 ^3/uL (0-0.8); Lymphocytes # (auto) 1.7 10 ^3/uL (0.4-5.4); Monocytes # (auto) 0.7 10 ^3/uL (0-1.3); Monocytes % (auto) 10.6 % (0.0-12.0); Neutrophils # (auto) 4.5 10 ^3/uL (1.6-8.6); Nucleated Red Blood Cells % 0.1 %; Red Cell Distribution Width 13.6 % (11.8-14.3)
[2021-10-07 05:21] LABS: Eosinophils % (auto) 0.4 % (0.0-7.0); Hematocrit 22.1 % (36.0-46.0); Hemoglobin 7.3 g/dL (12.2-16.2); Lymphocytes % (auto) 24.8 % (10.0-50.0); Mean Corpuscular Hemoglobin 27.4 pg (28.0-32.0); Mean Corpuscular Hgb Conc. 32.9 g/dL (32.0-36.0); Mean Corpuscular Volume 83.5 fL (80.0-100.0); Neutrophils % (auto) 63.8 % (37.0-80.0); Red Blood Cells 2.64 10^6/uL (4.0-5.20)
[2021-10-07 05:54] LABS: Calcium 8.5 mg/dL (8.5-10.1); Potassium 3.9 mmol/L (3.5-5.1)
[2021-10-07 05:56] LABS: BUN/Creatinine Ratio 17.9
[2021-10-07 09:00] VITALS: BP 126/55
[2021-10-07] MEDS: CLOPIDOGREL BISULFATE 75 MG TAB PO SCH (09:14)
[2021-10-07] MEDS: PANTOPRAZOLE 40 MG TAB PO SCH (09:14)
[2021-10-07] MEDS: FUROSEMIDE 40 MG TAB PO SCH (09:15)
[2021-10-07] MEDS: SODIUM FERR GLUC 62.5MG/5ML 125 MG in SODIUM CHL 0.9% 100 ML IV SCH (11:49)
[2021-10-07 12:23] LABS: Basophils # (auto) 0 10 ^3/uL (0-0.2); Basophils % (auto) 0.3 % (0.0-2.0); Eosinophils # (auto) 0 10 ^3/uL (0-0.8); Eosinophils % (auto) 0.2 % (0.0-7.0); Hematocrit 24.9 % (36.0-46.0); Hemoglobin 8.1 g/dL (12.2-16.2); Lymphocytes # (auto) 1.7 10 ^3/uL (0.4-5.4); Lymphocytes % (auto) 20.1 % (10.0-50.0); Mean Corpuscular Hemoglobin 27.4 pg (28.0-32.0); Mean Corpuscular Hgb Conc. 32.7 g/dL (32.0-36.0); Mean Corpuscular Volume 83.8 fL (80.0-100.0); Monocytes # (auto) 0.9 10 ^3/uL (0-1.3); Monocytes % (auto) 9.9 % (0.0-12.0); Neutrophils % (auto) 69.5 % (37.0-80.0); Nucleated Red Blood Cells % 0.1 %; Red Blood Cells 2.97 10^6/uL (4.0-5.20); Red Cell Distribution Width 13.6 % (11.8-14.3); White Blood Cell 8.7 10^3/uL (4.4-10.8)
[2021-10-07 13:00] VITALS: BP 132/50
[2021-10-07 17:00] VITALS: BP 115/53
[2021-10-07 18:31] LABS: Basophils # (auto) 0 10 ^3/uL (0-0.2); Eosinophils # (auto) 0 10 ^3/uL (0-0.8); Eosinophils % (auto) 0.3 % (0.0-7.0); Lymphocytes # (auto) 1.9 10 ^3/uL (0.4-5.4); Monocytes # (auto) 0.9 10 ^3/uL (0-1.3); Monocytes % (auto) 10.4 % (0.0-12.0)
[2021-10-07 18:32] LABS: Basophils % (auto) 0.5 % (0.0-2.0); Hemoglobin 8.1 g/dL (12.2-16.2); Mean Corpuscular Hemoglobin 27.9 pg (28.0-32.0); Mean Corpuscular Hgb Conc. 33.6 g/dL (32.0-36.0); Mean Corpuscular Volume 82.9 fL (80.0-100.0); Neutrophils # (auto) 5.7 10 ^3/uL (1.6-8.6); Neutrophils % (auto) 66.8 % (37.0-80.0); Nucleated Red Blood Cells % 0.1 %; Red Blood Cells 2.89 10^6/uL (4.0-5.20); Red Cell Distribution Width 13.3 % (11.8-14.3); White Blood Cell 8.5 10^3/uL (4.4-10.8)
[2021-10-07] MEDS: ATORVASTATIN 20 MG TAB PO SCH (21:19)
[2021-10-07] MEDS: HYDROcodone-ACET 10/325MG TAB PO PRN (21:20)
[2021-10-07] MEDS: TEMAZEPAM 15 MG CAP PO PRN (21:20)
[2021-10-07 22:00] VITALS: BP 132/56
[2021-10-08 05:00] VITALS: BP 121/61
[2021-10-08 05:42] LABS: Hemoglobin 7.9 g/dL (12.2-16.2)
[2021-10-08 05:44] LABS: Hematocrit 23.6 % (36.0-46.0)
[2021-10-08 09:00] VITALS: BP 121/55
[2021-10-08] MEDS: HYDROcodone-ACET 5/325MG TAB PO PRN (09:38)
[2021-10-08] MEDS: FUROSEMIDE 40 MG TAB PO SCH (09:41)
[2021-10-08] MEDS: PANTOPRAZOLE 40 MG TAB PO SCH (09:41)
[2021-10-08] MEDS: CLOPIDOGREL BISULFATE 75 MG TAB PO SCH (09:41)
[2021-10-08] MEDS ORDERED: POLYETHYLENE GLYCOL 17 GM PWDR PO ONE (10:15)
[2021-10-08] MEDS: ONDANSETRON HCL 4 MG/2 ML VIAL IV PRN (11:18)
[2021-10-08] MEDS: HYDROcodone-ACET 10/325MG TAB PO PRN ×2 (12:11→16:50)
[2021-10-08 12:58] VITALS: BP 128/53
[2021-10-08] MEDS: SODIUM FERR GLUC 62.5MG/5ML 125 MG in SODIUM CHL 0.9% 100 ML IV SCH (13:01)
[2021-10-08 17:00] VITALS: BP 153/56
[2021-10-08] MEDS: NITROGLYCERIN 0.4 MG SL TAB SL PRN ×2 (20:56→21:01)
[2021-10-08 22:00] VITALS: BP 122/52
[2021-10-08] MEDS: ATORVASTATIN 20 MG TAB PO SCH (22:15)
[2021-10-08] MEDS: TEMAZEPAM 15 MG CAP PO PRN (22:16)
[2021-10-09 05:00] VITALS: BP 141/52
[2021-10-09 06:09] LABS: Basophils # (auto) 0 10 ^3/uL (0-0.2); Basophils % (auto) 0.2 % (0.0-2.0); Eosinophils # (auto) 0 10 ^3/uL (0-0.8); Eosinophils % (auto) 0.3 % (0.0-7.0); Hemoglobin 7.8 g/dL (12.2-16.2); Lymphocytes # (auto) 0.6 10 ^3/uL (0.4-5.4); Monocytes # (auto) 0.7 10 ^3/uL (0-1.3)
[2021-10-09 06:13] LABS: Hematocrit 23.4 % (36.0-46.0); Mean Corpuscular Hemoglobin 27.8 pg (28.0-32.0); Mean Corpuscular Hgb Conc. 33.2 g/dL (32.0-36.0); Mean Corpuscular Volume 83.8 fL (80.0-100.0); Neutrophils # (auto) 7.6 10 ^3/uL (1.6-8.6); Neutrophils % (auto) 84.5 % (37.0-80.0); Nucleated Red Blood Cells % 0.1 %; Red Blood Cells 2.79 10^6/uL (4.0-5.20); Red Cell Distribution Width 13.5 % (11.8-14.3)
[2021-10-09] MEDS: HYDROcodone-ACET 10/325MG TAB PO PRN ×3 (06:48→18:36)
[2021-10-09 06:50] LABS: Calcium 8.6 mg/dL (8.5-10.1); Potassium 3.9 mmol/L (3.5-5.1)
[2021-10-09 06:53] LABS: BUN/Creatinine Ratio 13.2
[2021-10-09] MEDS: FUROSEMIDE 40 MG TAB PO SCH (08:19)
[2021-10-09] MEDS: PANTOPRAZOLE 40 MG TAB PO SCH (08:20)
[2021-10-09] MEDS: CLOPIDOGREL BISULFATE 75 MG TAB PO SCH (08:20)
[2021-10-09 09:00] VITALS: BP 131/70
[2021-10-09 12:56] VITALS: BP 137/67
[2021-10-09] MEDS: SODIUM FERR GLUC 62.5MG/5ML 125 MG in SODIUM CHL 0.9% 100 ML IV SCH (13:49)
[2021-10-09 17:05] VITALS: BP 133/63
[2021-10-09] MEDS: ATORVASTATIN 20 MG TAB PO SCH (21:26)
[2021-10-09] MEDS: TEMAZEPAM 15 MG CAP PO PRN (21:26)
[2021-10-09 22:00] VITALS: BP 117/54
[2021-10-10 05:00] VITALS: BP 110/53
[2021-10-10 07:25] LABS: Basophils # (auto) 0 10 ^3/uL (0-0.2); Basophils % (auto) 0.4 % (0.0-2.0); Eosinophils # (auto) 0.1 10 ^3/uL (0-0.8); Hemoglobin 7.9 g/dL (12.2-16.2); Lymphocytes # (auto) 1.3 10 ^3/uL (0.4-5.4); Monocytes # (auto) 1.4 10 ^3/uL (0-1.3); Nucleated Red Blood Cells % 0.1 %
[2021-10-10 07:28] LABS: Eosinophils % (auto) 1.1 % (0.0-7.0); Hematocrit 23.8 % (36.0-46.0); Lymphocytes % (auto) 14.6 % (10.0-50.0); Mean Corpuscular Hemoglobin 27.8 pg (28.0-32.0); Mean Corpuscular Hgb Conc. 33.1 g/dL (32.0-36.0); Mean Corpuscular Volume 84.2 fL (80.0-100.0); Monocytes % (auto) 15.9 % (0.0-12.0); Neutrophils # (auto) 6.2 10 ^3/uL (1.6-8.6); Red Blood Cells 2.83 10^6/uL (4.0-5.20); Red Cell Distribution Width 13.6 % (11.8-14.3); White Blood Cell 9.1 10^3/uL (4.4-10.8)
[2021-10-10 09:00] VITALS: BP 131/61
[2021-10-10] MEDS: CLOPIDOGREL BISULFATE 75 MG TAB PO SCH (09:24)
[2021-10-10] MEDS: FUROSEMIDE 40 MG TAB PO SCH (09:24)
[2021-10-10] MEDS: PANTOPRAZOLE 40 MG TAB PO SCH (09:24)
[2021-10-10 12:41] VITALS: BP 128/62
[2021-10-10] MEDS: ONDANSETRON HCL 4 MG/2 ML VIAL IV PRN (14:02)
== END 2021-10-10 17:00 | disposition home or self-care (01) | DRG 246 ==
LOC: ER 17:13 → TELE 20:49 → TELE-WESTW 10-02 01:27
PROVIDERS: ADMIT Nurse Practitioner; ATTEND Internal Medicine
PROC: 027034Z Dilation of Coronary Artery, One Artery with Drug-eluting Intraluminal Device, Percutaneous Approach (ICD-10-PCS; principal; 2021-10-03)
PROC: 4A023N7 Measurement of Cardiac Sampling and Pressure, Left Heart, Percutaneous Approach (ICD-10-PCS; 2021-10-03)
PROC: B211YZZ Fluoroscopy of Multiple Coronary Arteries using Other Contrast (ICD-10-PCS; 2021-10-03)
DX: T82.855A Stenosis of coronary artery stent, initial encounter (principal); I21.4 Non-ST elevation (NSTEMI) myocardial infarction; N17.9 Acute kidney failure, unspecified; I25.110 Atherosclerotic heart disease of native coronary artery with unstable angina pectoris; I11.0 Hypertensive heart disease with heart failure; D64.9 Anemia, unspecified; E66.9 Obesity, unspecified; S30.1XXA Contusion of abdominal wall, initial encounter; N94.89 Other specified conditions associated with female genital organs and menstrual cycle; Z20.822 Contact with and (suspected) exposure to COVID-19; K21.9 Gastro-esophageal reflux disease without esophagitis; R00.1 Bradycardia, unspecified; R42 Dizziness and giddiness; Y83.9 Surgical procedure, unspecified as the cause of abnormal reaction of the patient, or of later complication, without mention of misadventure at the time of the procedure; Y93.89 Activity, other specified; Y92.89 Other specified places as the place of occurrence of the external cause; Y99.8 Other external cause status; Z68.36 Body mass index [BMI] 36.0-36.9, adult; Z79.899 Other long term (current) drug therapy; Z80.9 Family history of malignant neoplasm, unspecified; Z82.0 Family history of epilepsy and other diseases of the nervous system; Z91.14 Patient's other noncompliance with medication regimen
CPT/HCPCS: 36415; 71045; 71275; 74176; 80048; 80053; 83735; 84100; 84484; 85014; 85018; 85025; 85379; 85610; 85730; 86850; 86900; 86901; 87426; 93005; 93306; 96374; 96375; 99152; 99153; G0378; J1885; J2250; J2405

== ENCOUNTER → 2021-10-01 | Outpatient (CLI) | payer OTHER ==
[~2021-10-01] MED LIST changes: +BUDE1AER5 PO; +CLOP75TA70 PO; +ESCI5TAB33 PO; +FURO40TA4 PO; +LOSA-39 PO; +NIFE90TA49 PO; +POTA-264 PO; +SIMV-13 PO
[2021-10-01 15:02] LABS: Basophils # (auto) 0 10 ^3/uL (0-0.2); Eosinophils # (auto) 0 10 ^3/uL (0-0.8); Mean Corpuscular Hemoglobin 26.4 pg (28.0-32.0); Mean Corpuscular Hgb Conc. 31.6 g/dL (32.0-36.0); Monocytes # (auto) 0.9 10 ^3/uL (0-1.3)
[2021-10-01 15:03] LABS: Basophils % (auto) 0.4 % (0.0-2.0); Eosinophils % (auto) 0.1 % (0.0-7.0); Hematocrit 43.7 % (36.0-46.0); Hemoglobin 13.8 g/dL (12.2-16.2); Lymphocytes # (auto) 2.1 10 ^3/uL (0.4-5.4); Lymphocytes % (auto) 21.2 % (10.0-50.0); Mean Corpuscular Volume 83.7 fL (80.0-100.0); Monocytes % (auto) 9.3 % (0.0-12.0); Neutrophils # (auto) 6.8 10 ^3/uL (1.6-8.6); Red Blood Cells 5.22 10^6/uL (4.0-5.20); Red Cell Distribution Width 14.1 % (11.8-14.3); White Blood Cell 9.8 10^3/uL (4.4-10.8)
[2021-10-01 15:37] LABS: Calcium 9.6 mg/dL (8.5-10.1); Potassium 4.1 mmol/L (3.5-5.1)
[2021-10-01 15:43] LABS: BUN/Creatinine Ratio 16.5; Bilirubin, Total 0.6 mg/dL (0.2-1.0); Total Protein 7.7 g/dL (6.4-8.2)
== END | disposition home or self-care (01) ==
LOC: LAB 14:22
PROVIDERS: ATTEND Internal Medicine
DX: I10 Essential (primary) hypertension (principal); R07.89 Other chest pain
CPT/HCPCS: 36415; 80053; 82550; 84484; 85025

== ENCOUNTER → 2021-10-17 | Outpatient (CLI) | payer OTHER ==
[~2021-10-17] MED LIST changes: +BUDE1AER5 PO; +CLOP75TA70 PO; +ESCI5TAB33 PO; +FURO40TA4 PO; +LOSA-39 PO; +NIFE90TA49 PO; +POTA-264 PO; +SIMV-13 PO
[2021-10-17 12:23] LABS: Eosinophils # (auto) 0.1 10 ^3/uL (0-0.8); Hemoglobin 9.6 g/dL (12.2-16.2); Monocytes # (auto) 0.6 10 ^3/uL (0-1.3); Nucleated Red Blood Cells % 0.1 %; Red Blood Cells 3.53 10^6/uL (4.0-5.20)
[2021-10-17 12:25] LABS: Basophils # (auto) 0 10 ^3/uL (0-0.2); Basophils % (auto) 0.5 % (0.0-2.0); Eosinophils % (auto) 1.7 % (0.0-7.0); Hematocrit 29.7 % (36.0-46.0); Lymphocytes # (auto) 1.7 10 ^3/uL (0.4-5.4); Lymphocytes % (auto) 20.1 % (10.0-50.0); Mean Corpuscular Hemoglobin 27.4 pg (28.0-32.0); Mean Corpuscular Hgb Conc. 32.5 g/dL (32.0-36.0); Mean Corpuscular Volume 84.3 fL (80.0-100.0); Monocytes % (auto) 7.4 % (0.0-12.0); Neutrophils % (auto) 70.3 % (37.0-80.0); Red Cell Distribution Width 14.7 % (11.8-14.3); White Blood Cell 8.5 10^3/uL (4.4-10.8)
[2021-10-17 12:51] LABS: Albumin 3.7 g/dL (3.4-5.0); Calcium 9.3 mg/dL (8.5-10.1); Potassium 4.4 mmol/L (3.5-5.1)
[2021-10-17 12:56] LABS: BUN/Creatinine Ratio 16.3; Bilirubin, Total 0.8 mg/dL (0.2-1.0)
== END | disposition home or self-care (01) ==
LOC: LAB 12:06
PROVIDERS: ATTEND Internal Medicine
DX: I50.32 Chronic diastolic (congestive) heart failure (principal); D64.9 Anemia, unspecified
CPT/HCPCS: 36415; 80053; 83880; 85025

== ENCOUNTER → 2021-12-13 | Outpatient (CLI) | payer OTHER ==
[2021-12-13 09:36] LABS: Basophils # (auto) 0 10 ^3/uL (0-0.2); Basophils % (auto) 0.3 % (0.0-2.0); Eosinophils # (auto) 0.1 10 ^3/uL (0-0.8); Hematocrit 38.6 % (36.0-46.0); Hemoglobin 12.3 g/dL (12.2-16.2); Lymphocytes # (auto) 1.8 10 ^3/uL (0.4-5.4); Lymphocytes % (auto) 28.4 % (10.0-50.0); Mean Corpuscular Hemoglobin 27.1 pg (28.0-32.0); Mean Corpuscular Volume 84.9 fL (80.0-100.0); Monocytes # (auto) 0.5 10 ^3/uL (0-1.3); Monocytes % (auto) 8.4 % (0.0-12.0); Neutrophils # (auto) 3.8 10 ^3/uL (1.6-8.6); Neutrophils % (auto) 61.9 % (37.0-80.0); Red Blood Cells 4.54 10^6/uL (4.0-5.20); Red Cell Distribution Width 14.7 % (11.8-14.3); White Blood Cell 6.2 10^3/uL (4.4-10.8)
[2021-12-13 09:46] LABS: Albumin 3.9 g/dL (3.4-5.0); Potassium 3.5 mmol/L (3.5-5.1)
[2021-12-13 09:53] LABS: BUN/Creatinine Ratio 15.8; Bilirubin, Total 0.3 mg/dL (0.2-1.0); Calcium 9.4 mg/dL (8.5-10.1); Total Protein 7.4 g/dL (6.4-8.2)
== END | disposition home or self-care (01) ==
LOC: LAB 08:51
PROVIDERS: ATTEND Internal Medicine
DX: D64.9 Anemia, unspecified (principal); I10 Essential (primary) hypertension
CPT/HCPCS: 36415; 80053; 82607; 83540; 85025

== ENCOUNTER 2022-04-06 14:27 | Inpatient (IN) | payer OTHER, MEDICAID ==
[~2022-04-06] VITALS: Ht 167.6 cm; Wt 102.4 kg
[2022-04-06] MEDS ORDERED: ASPirin 81 mg TAB PO ONE (16:00)
[2022-04-06] MEDS ORDERED: SODIUM CHLORIDE 0.9% 1,000 ML IV ONE (16:00)
[2022-04-06 16:02] LABS: Basophils # (auto) 0 10 ^3/uL (0-0.2); Basophils % (auto) 0.4 % (0.0-2.0); Eosinophils # (auto) 0 10 ^3/uL (0-0.8); Eosinophils % (auto) 0.6 % (0.0-7.0); Hematocrit 38.4 % (36.0-46.0); Lymphocytes % (auto) 26.1 % (10.0-50.0); Mean Corpuscular Hemoglobin 27.8 pg (28.0-32.0); Mean Corpuscular Hgb Conc. 33.8 g/dL (32.0-36.0); Mean Corpuscular Volume 82.3 fL (80.0-100.0); Monocytes # (auto) 0.6 10 ^3/uL (0-1.3); Monocytes % (auto) 7.7 % (0.0-12.0); Neutrophils % (auto) 65.2 % (37.0-80.0); Nucleated Red Blood Cells % 0.1 %; Red Blood Cells 4.67 10^6/uL (4.0-5.20); Red Cell Distribution Width 14.3 % (11.8-14.3); White Blood Cell 7.6 10^3/uL (4.4-10.8)
[2022-04-06 16:15] LABS: Albumin 4.1 g/dL (3.4-5.0); Calcium 9.6 mg/dL (8.5-10.1); Magnesium 2.7 mg/dL (1.6-2.6); Potassium 4.9 mmol/L (3.5-5.1)
[2022-04-06 16:18] LABS: BUN/Creatinine Ratio 13.3; Bilirubin, Total 0.4 mg/dL (0.2-1.0); Total Protein 7.9 g/dL (6.4-8.2)
[2022-04-06 16:45] LABS: INR 1.03 (0.9-1.15)
[2022-04-06] MEDS ORDERED: NITROGLYCERIN 0.4 MG SL TAB SL PRN (17:00)
[2022-04-06] MEDS ORDERED: MORPHINE SULFATE INJ 2 MG/ml SYRG IV PRN (17:00)
[2022-04-06] MEDS ORDERED: LORazepam 0.5 MG TAB PO PRN (18:15)
[2022-04-06] MEDS ORDERED: ACETAMINOPHEN 325 MG TAB PO PRN (18:15)
[2022-04-06] MEDS ORDERED: hydrALAZINE HCL 20 MG/ML VL IV PRN (18:15)
[2022-04-06] MEDS ORDERED: HYDROcodone-ACET 5/325MG TAB PO PRN (18:15)
[2022-04-06] MEDS ORDERED: DOCUSATE SOD 100 MG CAP PO PRN (18:15)
[2022-04-06] MEDS ORDERED: ONDANSETRON HCL 4 MG/2 ML VIAL IV PRN (18:15)
[2022-04-06 18:32] LABS: Magnesium 2.3 mg/dL (1.6-2.6); Phosphorus 3.3 mg/dL (2.5-4.90)
[2022-04-06] MEDS: NIFEdipine ER 30 MG TAB PO ONE ×2 (19:10→19:16)
[2022-04-06 22:00] VITALS: BP 143/64
[2022-04-06] MEDS ORDERED: BUDESONIDE (INHALATION) 0.5 MG/2 ML NEB NEB SCH (22:00)
[2022-04-06] MEDS: ATORVASTATIN 20 MG TAB PO SCH (22:00)
[2022-04-07] MEDS: MORPHINE SULFATE INJ 2 MG/ml SYRG IV PRN ×2 (00:35→22:01)
[2022-04-07 05:00] VITALS: BP 125/62
[2022-04-07] MEDS ORDERED: FUROSEMIDE 20 MG/2 ML VIAL IV SCH (06:00)
[2022-04-07 07:27] LABS: Basophils # (auto) 0 10 ^3/uL (0-0.2); Basophils % (auto) 0.3 % (0.0-2.0); Eosinophils # (auto) 0.1 10 ^3/uL (0-0.8); Eosinophils % (auto) 1.4 % (0.0-7.0); Hematocrit 37.4 % (36.0-46.0); Hemoglobin 12.5 g/dL (12.2-16.2); Lymphocytes # (auto) 1.4 10 ^3/uL (0.4-5.4); Mean Corpuscular Hemoglobin 27.7 pg (28.0-32.0); Mean Corpuscular Hgb Conc. 33.4 g/dL (32.0-36.0); Monocytes # (auto) 0.4 10 ^3/uL (0-1.3); Monocytes % (auto) 9.4 % (0.0-12.0); Neutrophils # (auto) 2.6 10 ^3/uL (1.6-8.6); Neutrophils % (auto) 57.9 % (37.0-80.0); Nucleated Red Blood Cells % 0.1 %; Red Blood Cells 4.51 10^6/uL (4.0-5.20); Red Cell Distribution Width 14.4 % (11.8-14.3); White Blood Cell 4.5 10^3/uL (4.4-10.8)
[2022-04-07 07:42] LABS: INR 1.02 (0.9-1.15); Partial Thromboplastin Time 29.9 sec (23.6-33.0)
[2022-04-07 07:49] LABS: Magnesium 2.3 mg/dL (1.6-2.6); Potassium 3.3 mmol/L (3.5-5.1)
[2022-04-07 08:04] LABS: Albumin 3.7 g/dL (3.4-5.0); BUN/Creatinine Ratio 20.9; Bilirubin, Total 0.6 mg/dL (0.2-1.0); CRP High Sensitivity 0.32 mg/dL (< 0.3); Calcium 9.3 mg/dL (8.5-10.1); Total Protein 7.3 g/dL (6.4-8.2)
[2022-04-07 08:34] VITALS: BP 108/62
[2022-04-07] MEDS ORDERED: POTASSIUM CHL 20 Meq TABLET PO ONE (09:00)
[2022-04-07] MEDS ORDERED: POTASSIUM CHL 20 Meq TABLET PO SCH (10:00)
[2022-04-07] MEDS: CLOPIDOGREL BISULFATE 75 MG TAB PO SCH (10:19)
[2022-04-07] MEDS: ASPirin 81 mg TAB PO SCH (10:19)
[2022-04-07] MEDS: FAMOTIDINE (10MG/ML) 2ML VL IV SCH (10:19)
[2022-04-07] MEDS: ENOXAPARIN SOD 40 MG/0.4 ML SYRINGE SC SCH (10:20)
[2022-04-07] MEDS: NIFEdipine ER 30 MG TAB PO SCH (10:20)
[2022-04-07 13:02] VITALS: BP 141/94
[2022-04-07 17:00] VITALS: BP 133/70
[2022-04-07 22:00] VITALS: BP 136/61
[2022-04-07] MEDS: ATORVASTATIN 20 MG TAB PO SCH (22:00)
[2022-04-08 05:00] VITALS: BP 124/54
[2022-04-08 09:00] VITALS: BP 118/57
[2022-04-08] MEDS: CLOPIDOGREL BISULFATE 75 MG TAB PO SCH (10:14)
[2022-04-08] MEDS: ASPirin 81 mg TAB PO SCH (10:14)
[2022-04-08] MEDS: FAMOTIDINE (10MG/ML) 2ML VL IV SCH (10:14)
[2022-04-08] MEDS: ENOXAPARIN SOD 40 MG/0.4 ML SYRINGE SC SCH (10:14)
[2022-04-08] MEDS: NIFEdipine ER 30 MG TAB PO SCH (10:15)
[2022-04-08] MEDS ORDERED: ASPI-325 PO (12:20)
[2022-04-08 13:00] VITALS: BP 137/66
[2022-04-08 13:52] VITALS: BP 137/66
== END 2022-04-08 16:02 | disposition home or self-care (01) | DRG 303 ==
LOC: ER 14:27 → TELE 16:50 → TELE-WESTW 22:55
PROVIDERS: ADMIT Hospitalist; ATTEND Internal Medicine
DX: I25.110 Atherosclerotic heart disease of native coronary artery with unstable angina pectoris (principal); I13.0 Hypertensive heart and chronic kidney disease with heart failure and stage 1 through stage 4 chronic kidney disease, or unspecified chronic kidney disease; N17.9 Acute kidney failure, unspecified; E05.90 Thyrotoxicosis, unspecified without thyrotoxic crisis or storm; E66.01 Morbid (severe) obesity due to excess calories; E78.5 Hyperlipidemia, unspecified; I25.5 Ischemic cardiomyopathy; I50.9 Heart failure, unspecified; J44.9 Chronic obstructive pulmonary disease, unspecified; N18.31 Chronic kidney disease, stage 3a; Z20.822 Contact with and (suspected) exposure to COVID-19; K21.9 Gastro-esophageal reflux disease without esophagitis; R73.03 Prediabetes; Z79.02 Long term (current) use of antithrombotics/antiplatelets; Z79.899 Other long term (current) drug therapy; I25.2 Old myocardial infarction; Z82.0 Family history of epilepsy and other diseases of the nervous system; Z95.5 Presence of coronary angioplasty implant and graft; Z71.3 Dietary counseling and surveillance; Z68.36 Body mass index [BMI] 36.0-36.9, adult
CPT/HCPCS: 36415; 71045; 80053; 80061; 82550; 82728; 83036; 83615; 83690; 83735; 83880; 83970; 84100; 84439; 84443; 84480; 84484; 84550; 85025; 85379; 85610; 85652; 85730; 86141; 87040; 93005; 93306; 94640; 96360; 99291; G0378; J3490

== ENCOUNTER 2022-05-01 18:48 | Inpatient (IN) | payer OTHER, MEDICAID ==
[~2022-05-01] VITALS: Ht 167.6 cm; Wt 99.7 kg
[~2022-05-01 18:48] MED LIST changes: +ASPI-325 PO
[2022-05-01 20:11] LABS: Basophils # (auto) 0 10 ^3/uL (0-0.2); Basophils % (auto) 0.3 % (0.0-2.0); Eosinophils # (auto) 0.1 10 ^3/uL (0-0.8); Hematocrit 38.9 % (36.0-46.0); Hemoglobin 12.7 g/dL (12.2-16.2); Lymphocytes # (auto) 2.1 10 ^3/uL (0.4-5.4); Lymphocytes % (auto) 28.3 % (10.0-50.0); Mean Corpuscular Hemoglobin 27.3 pg (28.0-32.0); Mean Corpuscular Hgb Conc. 32.7 g/dL (32.0-36.0); Mean Corpuscular Volume 83.7 fL (80.0-100.0); Monocytes # (auto) 0.6 10 ^3/uL (0-1.3); Monocytes % (auto) 7.6 % (0.0-12.0); Neutrophils # (auto) 4.6 10 ^3/uL (1.6-8.6); Neutrophils % (auto) 62.8 % (37.0-80.0); Nucleated Red Blood Cells % 0.1 %; Red Blood Cells 4.66 10^6/uL (4.0-5.20); Red Cell Distribution Width 14.1 % (11.8-14.3); White Blood Cell 7.3 10^3/uL (4.4-10.8)
[2022-05-01 20:29] LABS: Albumin 4.2 g/dL (3.4-5.0); Calcium 9.5 mg/dL (8.5-10.1); Magnesium 2.3 mg/dL (1.6-2.6); Potassium 3.7 mmol/L (3.5-5.1)
[2022-05-01 20:32] LABS: Bilirubin, Total 0.3 mg/dL (0.2-1.0); Total Protein 7.9 g/dL (6.4-8.2)
[2022-05-02 00:25] LABS: Urine Bacteria NONE SEEN /hpf (None Seen); Urine Blood Negative /uL (Negative); Urine WBC 13 /hpf (0 - 5)
[2022-05-02] MEDS ORDERED: ONDANSETRON HCL 4 MG/2 ML VIAL IV ONE (04:30)
[2022-05-02] MEDS ORDERED: MORPHINE SULFATE 4 MG/ML SYR/VIAL IV ONE (04:30)
[2022-05-02] MEDS ORDERED: MORPHINE SULFATE INJ 2 MG/ml SYRG IV PRN (05:30)
[2022-05-02] MEDS ORDERED: ACETAMINOPHEN 325 MG TAB PO PRN (05:30)
[2022-05-02] MEDS ORDERED: ONDANSETRON HCL 4 MG/2 ML VIAL IV PRN (05:30)
[2022-05-02] MEDS ORDERED: NITROGLYCERIN 0.4 MG SL TAB SL PRN (05:30)
[2022-05-02] MEDS: cefTRIAXone 1GM/50ML D5W 50 ML IV SCH (06:40)
[2022-05-02] MEDS: ASPirin 81 mg TAB PO SCH (09:36)
[2022-05-02] MEDS: CLOPIDOGREL BISULFATE 75 MG TAB PO SCH (09:37)
[2022-05-02] MEDS: FUROSEMIDE 40 MG TAB PO SCH (09:37)
[2022-05-02] MEDS: LOSARTAN POTASSIUM 50 MG TAB PO SCH (09:37)
[2022-05-02] MEDS: PANTOPRAZOLE 40 MG TAB PO SCH (09:38)
[2022-05-02] MEDS: NIFEdipine ER 30 MG TAB PO SCH (09:38)
[2022-05-02] MEDS: ENOXAPARIN SOD 40 MG/0.4 ML SYRINGE SC SCH (09:39)
[2022-05-02 17:01] VITALS: BP 161/58
[2022-05-02] MEDS: ATORVASTATIN 20 MG TAB PO SCH (20:49)
[2022-05-02] MEDS: SACUBITRIL-VALSARTAN 24mg/26mg TAB PO SCH (20:49)
[2022-05-02 22:25] VITALS: BP 130/53
[2022-05-03 05:21] LABS: Basophils # (auto) 0 10 ^3/uL (0-0.2); Basophils % (auto) 0.5 % (0.0-2.0); Eosinophils # (auto) 0.2 10 ^3/uL (0-0.8); Eosinophils % (auto) 2.8 % (0.0-7.0); Lymphocytes # (auto) 1.6 10 ^3/uL (0.4-5.4); Lymphocytes % (auto) 29.7 % (10.0-50.0); Mean Corpuscular Hemoglobin 27.3 pg (28.0-32.0); Mean Corpuscular Hgb Conc. 32.4 g/dL (32.0-36.0); Mean Corpuscular Volume 84.4 fL (80.0-100.0); Monocytes # (auto) 0.6 10 ^3/uL (0-1.3); Monocytes % (auto) 10.2 % (0.0-12.0); Neutrophils # (auto) 3.1 10 ^3/uL (1.6-8.6); Neutrophils % (auto) 56.8 % (37.0-80.0); Nucleated Red Blood Cells % 0.1 %; Red Blood Cells 4.38 10^6/uL (4.0-5.20); Red Cell Distribution Width 14.2 % (11.8-14.3); White Blood Cell 5.5 10^3/uL (4.4-10.8)
[2022-05-03 05:30] VITALS: BP 120/49
[2022-05-03 05:32] LABS: Calcium 9.4 mg/dL (8.5-10.1); Potassium 3.9 mmol/L (3.5-5.1)
[2022-05-03 05:35] LABS: BUN/Creatinine Ratio 21.5
[2022-05-03 09:00] VITALS: BP 139/54
[2022-05-03] MEDS: cefTRIAXone 1GM/50ML D5W 50 ML IV SCH (09:37)
[2022-05-03] MEDS: ASPirin 81 mg TAB PO SCH (10:42)
[2022-05-03] MEDS: HYDROcodone-ACET 5/325MG TAB PO PRN ×2 (10:42→19:53)
[2022-05-03] MEDS: PANTOPRAZOLE 40 MG TAB PO SCH (10:42)
[2022-05-03] MEDS: SACUBITRIL-VALSARTAN 24mg/26mg TAB PO SCH ×2 (10:42→21:12)
[2022-05-03] MEDS: CLOPIDOGREL BISULFATE 75 MG TAB PO SCH (10:42)
[2022-05-03] MEDS: FUROSEMIDE 40 MG TAB PO SCH (10:43)
[2022-05-03] MEDS: LOSARTAN POTASSIUM 50 MG TAB PO SCH (10:43)
[2022-05-03] MEDS: NIFEdipine ER 30 MG TAB PO SCH (10:44)
[2022-05-03] MEDS: ENOXAPARIN SOD 40 MG/0.4 ML SYRINGE SC SCH (10:53)
[2022-05-03 13:00] VITALS: BP 140/55
[2022-05-03 17:00] VITALS: BP 134/61
[2022-05-03] MEDS: ATORVASTATIN 20 MG TAB PO SCH (21:12)
[2022-05-03 22:00] VITALS: BP 144/69
[2022-05-04 08:00] VITALS: BP 121/56
[2022-05-04] MEDS: cefTRIAXone 1GM/50ML D5W 50 ML IV SCH (08:39)
[2022-05-04] MEDS: HYDROcodone-ACET 5/325MG TAB PO PRN (08:39)
[2022-05-04] MEDS: FUROSEMIDE 40 MG TAB PO SCH (09:49)
[2022-05-04] MEDS: PANTOPRAZOLE 40 MG TAB PO SCH (09:49)
[2022-05-04] MEDS: SACUBITRIL-VALSARTAN 24mg/26mg TAB PO SCH ×2 (09:49→21:53)
[2022-05-04] MEDS: CLOPIDOGREL BISULFATE 75 MG TAB PO SCH (09:49)
[2022-05-04] MEDS: ASPirin 81 mg TAB PO SCH (09:50)
[2022-05-04] MEDS: LOSARTAN POTASSIUM 50 MG TAB PO SCH (09:50)
[2022-05-04] MEDS: NIFEdipine ER 30 MG TAB PO SCH (09:50)
[2022-05-04] MEDS: ENOXAPARIN SOD 40 MG/0.4 ML SYRINGE SC SCH (09:51)
[2022-05-04 12:00] VITALS: BP 138/61
[2022-05-04] MEDS ORDERED: KETOROLAC TROMETH 30 MG/ML 1ML VIAL IV ONE (13:30)
[2022-05-04 16:00] VITALS: BP 144/56
[2022-05-04] MEDS: ATORVASTATIN 20 MG TAB PO SCH (21:53)
[2022-05-04 22:00] VITALS: BP 147/71
[2022-05-05 05:00] VITALS: BP 117/56
[2022-05-05] MEDS: cefTRIAXone 1GM/50ML D5W 50 ML IV SCH (08:47)
[2022-05-05 09:00] VITALS: BP 127/59
[2022-05-05] MEDS: SACUBITRIL-VALSARTAN 24mg/26mg TAB PO SCH (09:48)
[2022-05-05] MEDS: ASPirin 81 mg TAB PO SCH (09:48)
[2022-05-05] MEDS: PANTOPRAZOLE 40 MG TAB PO SCH (09:48)
[2022-05-05] MEDS: CLOPIDOGREL BISULFATE 75 MG TAB PO SCH (09:48)
[2022-05-05] MEDS: FUROSEMIDE 40 MG TAB PO SCH (09:49)
[2022-05-05] MEDS: LOSARTAN POTASSIUM 50 MG TAB PO SCH (09:49)
[2022-05-05] MEDS: NIFEdipine ER 30 MG TAB PO SCH (09:50)
[2022-05-05] MEDS: ENOXAPARIN SOD 40 MG/0.4 ML SYRINGE SC SCH (09:50)
[2022-05-05 13:14] VITALS: BP 133/63
[2022-05-05 16:32] VITALS: BP 133/63
== END 2022-05-05 17:15 | disposition home or self-care (01) | DRG 311 ==
LOC: ER 18:48 → TELE 05-02 05:25 → TELE-CENTR 05-02 16:26
PROVIDERS: ADMIT Nurse Practitioner; ATTEND Internal Medicine
DX: I24.9 Acute ischemic heart disease, unspecified (principal); N39.0 Urinary tract infection, site not specified; I11.0 Hypertensive heart disease with heart failure; Z20.822 Contact with and (suspected) exposure to COVID-19; K21.9 Gastro-esophageal reflux disease without esophagitis; Z98.61 Coronary angioplasty status; I25.2 Old myocardial infarction; Z82.0 Family history of epilepsy and other diseases of the nervous system
CPT/HCPCS: 36415; 71045; 80048; 80053; 81001; 83735; 84443; 84484; 85025; 87081; 93005; 96365; 96375; G0378; J0696; J1885; J2405

== ENCOUNTER → 2022-06-11 | Outpatient (CLI) | payer OTHER, MEDICAID ==
[~2022-06-11] MED LIST changes: +FLEC1TAB PO; +MAGN241.4 PO; +OMEP20TA85 PO
[2022-06-11 09:02] VITALS: BP 138/62
[2022-06-11 09:14] VITALS: BP 124/57
[2022-06-11 12:16] LABS: Basophils # (auto) 0 10 ^3/uL (0-0.2); Basophils % (auto) 0.6 % (0.0-2.0); Eosinophils # (auto) 0.1 10 ^3/uL (0-0.8); Lymphocytes # (auto) 1.5 10 ^3/uL (0.4-5.4); Mean Corpuscular Hemoglobin 26.4 pg (28.0-32.0); Mean Corpuscular Hgb Conc. 31.2 g/dL (32.0-36.0); Monocytes # (auto) 0.4 10 ^3/uL (0-1.3)
[2022-06-11 12:19] LABS: Eosinophils % (auto) 1.5 % (0.0-7.0); Hematocrit 40.1 % (36.0-46.0); Hemoglobin 12.5 g/dL (12.2-16.2); Lymphocytes % (auto) 25.7 % (10.0-50.0); Mean Corpuscular Volume 84.6 fL (80.0-100.0); Monocytes % (auto) 6.8 % (0.0-12.0); Neutrophils # (auto) 3.7 10 ^3/uL (1.6-8.6); Neutrophils % (auto) 65.4 % (37.0-80.0); Red Blood Cells 4.74 10^6/uL (4.0-5.20); White Blood Cell 5.7 10^3/uL (4.4-10.8)
[2022-06-11 12:21] LABS: Potassium 3.7 mmol/L (3.5-5.1)
[2022-06-11 12:25] LABS: INR 0.97 (0.9-1.15); Partial Thromboplastin Time 30.5 sec (24.6-33.4)
[2022-06-11 12:27] LABS: BUN/Creatinine Ratio 19.8; Calcium 9.5 mg/dL (8.5-10.1)
== END | disposition home or self-care (01) ==
LOC: Rad HDHVI 08:48
PROVIDERS: ATTEND Internal Medicine Cardiovascular Disease
DX: Z01.812 Encounter for preprocedural laboratory examination (principal); R06.02 Shortness of breath; R07.9 Chest pain, unspecified
CPT/HCPCS: 36415; 71046; 80048; 85025; 85610; 85730; 93005; G0463

== ENCOUNTER 2022-06-13 06:50 | Day surgery (SDC) | payer OTHER, MEDICAID ==
[~2022-06-13] VITALS: Ht 167.6 cm; Wt 93.0 kg
[~2022-06-13 06:50] MED LIST changes: -ASPI-325 PO; -BUDE1AER5 PO; -ESCI5TAB33 PO; -MAGN241.4 PO
[2022-06-13] MEDS ORDERED: LIDOCAINE 2%HCL (LOCAL ANESTH.) INJ 20ML MDV ONE ×3 (07:52→09:43)
[2022-06-13] MEDS ORDERED: IOHEXOL 350 MG/ML 100ML IJ ONE (07:52)
[2022-06-13] MEDS ORDERED: fentaNYL CITRATE 100 MCG/2 ML VL ONE (07:53)
[2022-06-13] MEDS ORDERED: MIDAZOLAM HCL 2MG/2ML 2ml VIAL (1mg/ml) ONE (07:53)
[2022-06-13] MEDS ORDERED: SODIUM CHL 0.9% 0 ML ONE (07:53)
[2022-06-13] MEDS ORDERED: ANGIOMAX 250 MG VIAL IV ONE (07:53)
[2022-06-13] MEDS ORDERED: HEPARIN SODIUM (PORCINE) 5000 UNITS/ML 1ML VIAL ONE (09:45)
[2022-06-13] MEDS ORDERED: VERAPAMIL 2.5MG/ML INJ 2ML VIAL IV ONE (09:45)
[2022-06-13 13:42] VITALS: BP 105/72
== END 2022-06-13 12:47 | disposition home or self-care (01) ==
LOC: CATH 06:50
PROVIDERS: ATTEND Internal Medicine Cardiovascular Disease
DX: R94.39 Abnormal result of other cardiovascular function study (principal); I25.118 Atherosclerotic heart disease of native coronary artery with other forms of angina pectoris; I10 Essential (primary) hypertension; E78.5 Hyperlipidemia, unspecified; I25.2 Old myocardial infarction; Z79.02 Long term (current) use of antithrombotics/antiplatelets; Z95.5 Presence of coronary angioplasty implant and graft; Z80.8 Family history of malignant neoplasm of other organs or systems; Z81.8 Family history of other mental and behavioral disorders; Z20.822 Contact with and (suspected) exposure to COVID-19
CPT/HCPCS: 36221; 75625; 93458; C1769; C1887; C1894; J1644; J2250; J3010; J7030; Q9967; U0003; 99152; 99153

== ENCOUNTER → 2022-10-08 | Outpatient (CLI) | payer OTHER, MEDICAID ==
[2022-10-08 12:08] LABS: Basophils # (auto) 0 10 ^3/uL (0-0.2); Eosinophils # (auto) 0.1 10 ^3/uL (0-0.8); Monocytes # (auto) 0.5 10 ^3/uL (0-1.3); Neutrophils # (auto) 3.4 10 ^3/uL (1.6-8.6); Nucleated Red Blood Cells % 0.1 %; White Blood Cell 5.5 10^3/uL (4.4-10.8)
[2022-10-08 12:10] LABS: Basophils % (auto) 0.5 % (0.0-2.0); Eosinophils % (auto) 1.2 % (0.0-7.0); Hematocrit 40.5 % (36.0-46.0); Lymphocytes # (auto) 1.6 10 ^3/uL (0.4-5.4); Lymphocytes % (auto) 28.9 % (10.0-50.0); Mean Corpuscular Hemoglobin 27.3 pg (28.0-32.0); Mean Corpuscular Hgb Conc. 32.2 g/dL (32.0-36.0); Monocytes % (auto) 8.3 % (0.0-12.0); Neutrophils % (auto) 61.1 % (37.0-80.0); Red Blood Cells 4.76 10^6/uL (4.0-5.20)
[2022-10-08 13:31] LABS: Cholesterol 173 mg/dL (< 200); HDL Cholesterol 70 mg/dL (40-59); LDL Cholesterol 106 mg/dL (< 100); Triglycerides 60 mg/dL (< 150)
== END | disposition home or self-care (01) ==
LOC: LAB 11:27
PROVIDERS: ATTEND Internal Medicine
DX: I25.10 Atherosclerotic heart disease of native coronary artery without angina pectoris (principal); E78.5 Hyperlipidemia, unspecified
CPT/HCPCS: 36415; 80061; 84439; 84443; 85025

== ENCOUNTER → 2023-01-06 | Outpatient (CLI) | payer MEDICAID, OTHER ==
[2023-01-06 10:53] LABS: Basophils # (auto) 0 10 ^3/uL (0-0.2); Basophils % (auto) 0.8 % (0.0-2.0); Eosinophils # (auto) 0.1 10 ^3/uL (0-0.8); Eosinophils % (auto) 1.6 % (0.0-7.0); Hemoglobin 12.5 g/dL (12.2-16.2); Lymphocytes # (auto) 1.6 10 ^3/uL (0.4-5.4); Lymphocytes % (auto) 32.5 % (10.0-50.0); Mean Corpuscular Hemoglobin 27.9 pg (28.0-32.0); Mean Corpuscular Hgb Conc. 32.9 g/dL (32.0-36.0); Mean Corpuscular Volume 84.8 fL (80.0-100.0); Monocytes # (auto) 0.4 10 ^3/uL (0-1.3); Monocytes % (auto) 9.2 % (0.0-12.0); Neutrophils # (auto) 2.7 10 ^3/uL (1.6-8.6); Neutrophils % (auto) 55.9 % (37.0-80.0); Nucleated Red Blood Cells % 0.1 %; Red Blood Cells 4.48 10^6/uL (4.0-5.20); Red Cell Distribution Width 13.9 % (11.8-14.3); White Blood Cell 4.8 10^3/uL (4.4-10.8)
[2023-01-06 12:42] LABS: Urine Bacteria NONE SEEN /hpf (None Seen); Urine Blood Negative /uL (Negative); Urine Specific Gravity 1.022 (1.001-1.035); Urine WBC 2 /hpf (0 - 5)
[2023-01-06 14:23] LABS: Calcium 9.7 mg/dL (8.5-10.1); Potassium 3.9 mmol/L (3.5-5.1)
[2023-01-06 14:27] LABS: Albumin 3.7 g/dL (3.4-5.0); BUN/Creatinine Ratio 16.7
[2023-01-06 14:30] LABS: Bilirubin, Total 0.3 mg/dL (0.2-1.0); Total Protein 7.2 g/dL (6.4-8.2)
[2023-01-06 15:08] LABS: Magnesium 2.3 mg/dL (1.6-2.6)
== END | disposition home or self-care (01) ==
LOC: LAB 10:30
PROVIDERS: ATTEND Internal Medicine
DX: I10 Essential (primary) hypertension (principal); R35.1 Nocturia
CPT/HCPCS: 36415; 80053; 80061; 81001; 83036; 83735; 84439; 84443; 85025

== ENCOUNTER → 2023-02-26 | Outpatient (CLI) | payer OTHER | END | disposition home or self-care (01) | LOC: Rad HDHVI 15:12 | PROVIDERS: ATTEND Internal Medicine Cardiovascular Disease | DX: I08.1 Rheumatic disorders of both mitral and tricuspid valves (principal); I10 Essential (primary) hypertension; E78.5 Hyperlipidemia, unspecified | CPT/HCPCS: 93306 ==

== ENCOUNTER 2023-05-08 18:32 | Emergency (ER) | payer OTHER ==
[~2023-05-08] VITALS: Ht 165.1 cm; Wt 90.0 kg
[2023-05-08] MEDS: LACTULOSE 20Gm/30ML SOLN PO ONE (01:10)
[~2023-05-08 18:32] MED LIST changes: -LOSA-39 PO; +LOSA100T58 PO; -NIFE90TA49 PO; +NIFE90TA75 PO; -SIMV-13 PO; +SIMV40TA18 PO
[2023-05-08 20:34] LABS: Urine Bacteria FEW /hpf (None Seen); Urine Blood Negative /uL (Negative); Urine Mucus FEW (None Seen); Urine Specific Gravity 1.025 (1.001-1.035); Urine WBC 4 /hpf (0 - 5)
[2023-05-09 01:05] VITALS: BP 141/74
[2023-05-09] MEDS: LACTULOSE 20Gm/30ML SOLN PO ONE (01:08)
[2023-05-09] MEDS: FLEET ENEMA(ADULT) 135 ML PR ONE ×2 (01:10→01:21)
== END 2023-05-09 01:26 | disposition home or self-care (01) ==
LOC: ER 18:32
DX: K59.00 Constipation, unspecified (principal); K21.9 Gastro-esophageal reflux disease without esophagitis; E78.5 Hyperlipidemia, unspecified; I11.0 Hypertensive heart disease with heart failure; I50.89 Other heart failure; Z98.890 Other specified postprocedural states; Z79.899 Other long term (current) drug therapy
CPT/HCPCS: 74018; 81001

== ENCOUNTER → 2025-06-24 | Day surgery (SDC) | payer OTHER, MEDICAID ==
[2025-06-20 13:57] LABS: Hematocrit 38.2 % (36.0-46.0); Hemoglobin 12.5 g/dL (12.2-16.2); Mean Corpuscular Hemoglobin 27.3 pg (28.0-32.0); Mean Corpuscular Volume 83.4 fL (80.0-100.0); Nucleated Red Blood Cells % 0.0 %
[2025-06-20 14:13] LABS: INR 1.02 (0.9-1.15); Partial Thromboplastin Time 29.9 SEC (24.5-34.5); Prothrombin Time 10.8 sec (9.3-11.8)
[2025-06-20 14:24] LABS: Alanine Aminotransferase 25 U/L (7-40); Albumin 4.6 g/dL (3.2-4.8); Alkaline Phosphatase 102 U/L (46-116); Anion Gap 11 (5-15); BUN/Creatinine Ratio 13.8 (10.0-20.0); Bilirubin, Total 0.5 mg/dL (0.2-1.0); Blood Urea Nitrogen 12 mg/dL (9-23); Calcium 9.7 mg/dL (8.7-10.4); Carbon Dioxide 25 mmol/L (20-31); Chloride 107 mmol/L (98-107); Glucose 97 mg/dL (74-106); Potassium 3.9 mmol/L (3.5-5.1); Sodium 143 mmol/L (136-145); Total Protein 6.9 g/dL (5.7-8.2)
[2025-06-20 14:33] LABS: Urine Protein, UAD Negative (Negative)
[~2025-06-24] VITALS: Ht 165.1 cm; Wt 89.8 kg
[~2025-06-24] MED LIST changes: -FLEC1TAB PO; -LOSA100T58 PO; -METOPROLOL; +OLME20TA53 PO; -POTA-264 PO
[2025-06-24 14:31] VITALS: PULSE 101; RESP 15; TEMP 97.1; O2SAT 98
[2025-06-24 15:31] VITALS: BP 134/48; PULSE 73; RESP 18; O2SAT 96
--- NOTE | 2025-06-24 16:09 | DVHOP2 ---
Operative Report DATE OF OPERATION: 06/24/25 PROCEDURE: Upper Endoscopy. PREOPERATIVE INDICATION: The patient is a 69 -year-old female undergoing endoscopy for chronic GERD POSTOPERATIVE DIAGNOSES: 1. 1-2 cm sliding-type hiatal hernia with slightly irregular squamocolumnar junction minimal grade a erosive esophagitis 2. Mild gastritis otherwise normal examination up to the 2nd and 3rd part of the duodenum PROCEDURE PERFORMED BY: Mervat Lombardi GI NURSE: Devorah SCOPE: Olympus videoendoscope. ASA CLASS: 3. PREOPERATIVE MEDICATIONS: Mac sedation, Zeke Virk PROCEDURE IN DETAIL: After obtaining an informed consent, the patient was placed on left lateral decubitus position. The patient was then sedated with the above medications. A bite block was placed between his teeth. The endoscope was then passed through the oropharynx, into the esophagus, and through the stomach and pylorus up to the second and third part of the duodenum. The endoscope was then withdrawn. The 2nd and 3rd part of the duodenum and the duodenal bulb were normal. Duodenal biopsies were obtained The pre-pyloric area antrum and body showed mild gastritis. Gastric biopsies were obtained. On retroflexion the fundus cardia and angularis were normal. The endoscope was then withdrawn into distal esophagus. Patient had a 1-2 cm sliding-type hiatal hernia with slightly irregular squamocolumnar junction minimal grade a erosive esophagitis GE junction biopsies were obtained. The remaining distal and proximal esophagus and oropharynx were unremarkable The patient tolerated the procedure well without difficulty. COMPLICATIONS : None SPECIMENS: Duodenal biopsies Gastric biopsies GE junction biopsies DISPOSITION: Stable D/C to home PLAN: 1. Await for biopsy result 2. Will place pt on Protonix 40 mg p.o. daily 3. Resume GI soft diet advance as tolerated 4. Lifestyle and dietary modifications for GERD 5. Outpatient follow up with me in 4-6 weeks to review results and discuss further management MERVAT LOMBARDI MD Jun 24, 2025 16:09
--- NOTE | 2025-06-24 16:12 | DVHOP2 ---
Operative Report DATE OF OPERATION: 06/24/25 PROCEDURE: Colonoscopy with cold biopsy polypectomy. PREOPERATIVE INDICATION: The patient is a 69 -year-old female undergoing colonoscopy for colon cancer screening history of constipation POSTOPERATIVE DIAGNOSES: 1. There was a 2 mm benign-appearing proximal descending colon polyp that was seen and removed by cold biopsy forceps completely and the specimen was retrieved 2. Ogal-fr-[id number] scattered diverticular disease most prominent in the sigmoid 3. 1+ internal hemorrhoids otherwise completely normal colonoscopy examination up to the cecum and terminal ileum PROCEDURE PERFORMED BY: Mervat Lombardi M.D. SCOPE: Olympus videocolonoscope. ASA CLASS: 3 PREOPERATIVE MEDICATIONS: Mac sedation, Zeke Virk PROCEDURE IN DETAIL: After obtaining an informed consent, the patient was placed on left lateral decubitus position. She was then sedated with the above medications. A rectal examination was performed that was normal. The colonoscope was then passed through the anus into the rectosigmoid and through the descending, transverse, and ascending colon up to the cecum with visualization of the appendiceal orifice, base of the cecum and the ileocecal valve. The colonoscope was then withdrawn. The distal 5-10 cm of the terminal ileum were normal There were no masses or colitis. Patient had mild scattered diverticular disease most prominent in the sigmoid In the proximal descending colon there was a 2 mm sessile benign-appearing polyp.This was removed completely via cold biopsy forceps. On retroflexion and straight on view she had trace to 1+ internal hemorrhoids. The patient tolerated the procedure well without difficulty. WITHDRAWAL TIME: 6 minutes QUALITY OF THE PREP: [place] Bowel Prep score: 9. COMPLICATIONS : None SPECIMENS: Descending colon polyp DISPOSITION: Stable D/C to home PLAN: 1. Repeat colonoscopy base on biopsy result likely in 3-5 years 2. Resume GI soft diet advance as tolerated 3. Increase fluid and fiber intake 4. Local anorectal hemorrhoidal care 5. Outpatient follow up with me in 2-4 weeks to review results and discuss further management MERVAT LOMBARDI MD Jun 24, 2025 16:12
== END | disposition home or self-care (01) ==
LOC: GI 12:00
PROVIDERS: ATTEND Internal Medicine Gastroenterology
DX: K59.00 Constipation, unspecified (principal); D12.4 Benign neoplasm of descending colon; K57.30 Diverticulosis of large intestine without perforation or abscess without bleeding; K64.8 Other hemorrhoids; K29.50 Unspecified chronic gastritis without bleeding; K22.10 Ulcer of esophagus without bleeding; K21.9 Gastro-esophageal reflux disease without esophagitis; K44.9 Diaphragmatic hernia without obstruction or gangrene; I10 Essential (primary) hypertension; I25.2 Old myocardial infarction; E04.9 Nontoxic goiter, unspecified; Z95.5 Presence of coronary angioplasty implant and graft; Z79.899 Other long term (current) drug therapy
CPT/HCPCS: 36415; 43239; 45380; 80053; 81001; 85025; 85610; 85730; 88305; 88342; J2003; J2405; J2704; J2765; J7030